=== PATIENT | female | born 1940 | race Caucasian/White ===

== ENCOUNTER 2016-10-13 11:57 | Inpatient (IN) | payer MEDICARE, OTHER ==
[~2016-10-13] VITALS: Ht 162.6 cm; Wt 59.1 kg
[~2016-10-13 11:57] MED LIST: ARICEPT10 MG PO; BAYER CHEWABLE81 MG PO; CRESTOR20 MG PO; CYCLOBENZAPRINE10 MG PO; DOXYCYCLINE HY100 M2; DOXYCYCLINE HY100 M2 PO; EVISTA60 MG PO; FEXOFENADINE H180 MG PO; INDERAL 40 MG T40 MG PO; LEVAQUIN750 MG PO; MUCINEX600 MG PO; OXYCONTIN15 MG PO; PREDNISONE20 MG PO; PRILOSEC20 MG PO; PROZAC20 MG PO; ROXICODONE15 MG PO; TESSALON PERLE100 MG PO; TOPAMAX100 MG PO; VIBRAMYCIN 100100 MG PO; VITAMIN D5000 UNIT PO
[2016-10-13 13:44] LABS: BASOPHILS 0.1 % (0.0-2.0); EOSINOPHILS 0.1 % (0-7); HEMATOCRIT 36.5 % (36.0-48.0); HEMOGLOBIN 11.7 g/dL (12-16); IMMATURE GRANULOCYTES 0.5 % (0-5); LYMPHOCYTES 6.2 % (15-50); MCH 30.2 pg (26.0-34.0); MCHC 32.1 g/dL (31.0-37.0); MCV 94.3 fL (80.0-100.0); MEAN PLATELET VOLUME 10.8 fL (7.4-10.4); MONOCYTES 15.4 % (2-11); NEUTROPHILS 77.7 % (40-80); PLATELET COUNT 317 10x3/uL (130-400); RBC 3.87 10x6/uL (4.00-5.40); RDW 13.6 % (11.5-14.5); WBC 26.2 10x3/uL (4.8-10.8)
[2016-10-13 13:59] LABS: ALBUMIN 2.8 g/dL (3.4-5.0); BILIRUBIN - TOTAL 0.27 mg/dL (0.2-1.3); CALCIUM 8.7 mg/dL (8.5-10.1); CARBON DIOXIDE 25.2 mmol/L (21.0-32.0); CREATININE - SERUM 0.9 mg/dL (0.6-1.3); POTASSIUM - SERUM 4.2 mmol/L (3.5-5.1); PROTEIN - SERUM 6.5 g/dL (6.4-8.2)
[2016-10-13 14:33] LABS: CKMB 26.8 U/L (0.0-3.6)
[2016-10-13 14:42] LABS: CREATINE KINASE 963 UL (21-215); TROPONIN-I < 0.017 ng/mL (0.000-0.060)
[2016-10-13 14:54] LABS: APPEARANCE CLEAR (CLEAR); BILIRUBIN NEGATIVE (NEGATIVE); COLOR YELLOW (YELLOW); GLUCOSE NEGATIVE (NEGATIVE); KETONE NEGATIVE (NEGATIVE); LEUKOCYTE ESTERASE TRACE (NEGATIVE); NITRITE NEGATIVE (NEGATIVE); PROTEIN 1+ mg/dL (NEGATIVE); UROBILINOGEN NORMAL (NORMAL)
[2016-10-13 14:55] LABS: RED CELLS - URINE 0-5 /hpf (0-5)
[2016-10-13 14:56] LABS: BACTERIA MODERATE /hpf (NONE SEEN); EPITHELIAL CELLS 0-5 /hpf (0-5)
[2016-10-13 20:00] VITALS: BP 147/75
--- NOTE | 2016-10-13 20:20 | NUR ---
PATIENT RESTING IN BED COMPLAINTS OF HEADACHE 06/29. OXYCODONE GIVEN ORDERED. NO OTHER NEEDS VOICED AT THIS TIME. BED LOW. CALL LIGHT IN REACH.
[2016-10-14] VITALS (7 sets, daily range): BP systolic 116–147; BP diastolic 44–75; Ht 162.6 cm; Wt 59.1 kg
[2016-10-14 07:08] LABS: CALC OSMOLALITY 272 mosm/kg (275-300); CALCIUM 7.9 mg/dL (8.5-10.1); CARBON DIOXIDE 24.6 mmol/L (21.0-32.0); CHLORIDE - SERUM 102 mmol/L (98-107); CREATININE - SERUM 0.7 mg/dL (0.6-1.3); GLUCOSE 97 mg/dL (74-106); POTASSIUM - SERUM 4.1 mmol/L (3.5-5.1); SODIUM 135 mmol/L (136-145); UREA NITROGEN 22 mg/dL (7-18); eGFR NON AFRICAN AMERICAN 86 mL/min (90-120)
[2016-10-14 07:14] LABS: HEMATOCRIT 32.3 % (36.0-48.0); HEMOGLOBIN 10.3 g/dL (12-16); MCH 29.7 pg (26.0-34.0); MCHC 31.9 g/dL (31.0-37.0); MCV 93.1 fL (80.0-100.0); MEAN PLATELET VOLUME 10.6 fL (7.4-10.4); PLATELET COUNT 312 10x3/uL (130-400); RBC 3.47 10x6/uL (4.00-5.40); RDW 13.5 % (11.5-14.5); WBC 23.7 10x3/uL (4.8-10.8)
--- NOTE | 2016-10-14 07:15 | NUR ---
REPORT RECEIVED FROM SUPERVISOR GRADING NURSE. CALL LIGHT IN REACH.
[2016-10-14 07:43] LABS: LYMPHOCYTES 8 % (15-50); MONOCYTES 12 % (2-11); NEUTROPHILS 75 % (40-80); PLATELET ESTIMATE NORMAL
--- NOTE | 2016-10-14 08:11 | HP ---
PATIENT: HECTOR RAMIREZ MEDICAL RECORD: [id number] ACCOUNT: [id number] LOCATION:D.MS [id number] : 38 ADMISSION DATE: 10/13/16 HISTORY AND PHYSICAL EXAMINATION DATE OF ADMISSION: 10/13/2016 CHIEF COMPLAINT: Fever, confusion, shortness of breath. HISTORY OF PRESENT ILLNESS: This is a 76-year-old female who has a primary care doctor either in [place] or [place]. She has lived in [place] for years. She presented to the ER today complaining of fever, confusion, and shortness of breath for about 2 weeks. Her white count was high at 26,000. She has a history of COPD. She had UTI in the ER. She was admitted for elevated white count, COPD exacerbation, and UTI. PAST MEDICAL AND SURGICAL HISTORY: Significant for COPD, reflux, recurrent UTIs, hyperlipidemia, and insomnia. PAST SURGICAL HISTORY: Hysterectomy, appendectomy, left knee arthroscopy in 2008 and again in 2013. The last was done by Dr. Raj Bonds at [facility]. ALLERGIES: Reportedly to CEPHALEXIN, BACTRIM, IMITREX, KEFLEX, and LEVAQUIN. HOME MEDICATIONS: Aspirin 81 mg a day, Prozac 40 mg a day, Evista 60 mg a day, vitamin D 5000 units once a day, Crestor 20 mg a day, Inderal-LA 40 once a day for migraine headaches, Topamax 100 mg twice a day, oxycodone IR 15 mg p.r.n. migraine headaches, Prilosec 20 mg a day. It is also reported she takes Flexeril 20 mg at bedtime, Tessalon Perlrichard. It also appears that she may have had a steroid Dosepak recently and doxycycline by mouth recently. 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 HABITS: Former smoker. Denies alcohol or drug use. FAMILY HISTORY: Father had CHF. Mother had lung cancer. REVIEW OF SYSTEMS: GENERAL: No major weight changes. HEENT: No sinus or allergy problems. RESPIRATORY: Has COPD. CARDIAC: No history of coronary artery disease. GASTROINTESTINAL: Has a little reflux. GENITOURINARY: Has had recurrent UTIs and saw Dr. Cruz in the past. MUSCULOSKELETAL: No significant arthritis. She did have left knee arthroscopy a couple of times. NEUROLOGIC: Has history of migraine headaches. PSYCHIATRIC: Has some depression. PHYSICAL EXAMINATION: VITAL SIGNS: Temperature 98.1, pulse 96, respirations 19, blood pressure 147/75, O2 sat 98%. GENERAL: She does not appear to be in acute distress. She is awake and fairly HISTORY AND PHYSICAL [id number] HECTOR RAMIREZ alert now. It is reported she was confused earlier in the ER. HEENT: TMs are clear. Nose and throat are unremarkable. NECK: Supple. No JVD or bruit. HEART: Regular rate and rhythm. LUNGS: Fairly clear, maybe a few wheezes. ABDOMEN: Soft, flat, nontender. BACK: No CVA tenderness. No flank tenderness. EXTREMITIES: No edema. LABORATORY DATA: Urinalysis is reportedly yellow and clear, 1+ protein, trace blood, 0-5 red blood cells, 10-25 white blood cells, 0-5 epithelial cells, moderate bacteria. CBC with a white count of 26,200, hemoglobin 11.7, hematocrit 36.5, platelet count 317,000, 77% neutrophils, 6% lymphocytes. Basic metabolic panel is normal except BUN is a little elevated at 23. Lactic acid 1.0, calcium 8.7. LFTs: AST is 66, alkaline phosphatase is 148. Other LFTs are fine. Her creatinine kinase is high at 963 for some reason, CK-MB is 26.8, troponin is less than 0.017. Albumin is low at 2.8. DIAGNOSTIC STUDIES: Chest x-ray was done showing [id number] central pulmonary vascular congestion, no acute infiltrates seen. Flu tests are negative for A and B. ASSESSMENT: 1. Urinary tract infection. 2. Chronic obstructive pulmonary disease. 3. Elevated white count but this could be partially due to recent steroid use. 4. History of migraines. PLAN: We will admit. She is started on doxycycline as she has multiple allergies. I will see if we can run a urine culture on her urinalysis. Continue her usual medications. Of note, I did look her up on [place] prescription management program and she is getting 70 oxycodone IR 15 mg every month from Dr. Jesse Biggs, that is either is [place] or [place]. I am concerned about her chronic pain medicine use. Other tests and procedures as warranted. TRANSINT:[id number] Voice Confirmation ID: [id number] DOCUMENT ID: [id number] TORY VASQUEZ MD at 0811 CC: [id number] DICTATION DATE: 10/13/162220 LOCATION AND MEASUREMENT TECHNICIAN: 10/13/16 2308 ADM IN [place] [id number] [place] [id number]
--- NOTE | 2016-10-14 08:26 | NUR ---
ASSESSMENT COMPLETED. AM MEDS ADMINISTERED WITH OXY IR. CALL LIGHT IN REACH. WILL CONTINUE WITH PLAN OF CARE.
--- NOTE | 2016-10-14 09:26 | NUR ---
Patient resting quietly in bed wwithout c/o voiced. States breathing better. Some audible wheezees. IV infusing without signs of infiltration. O2 inplace at 1 l/m per cannula. Lindsey Carrington RN
--- NOTE | 2016-10-14 11:05 | NUR ---
RESTING WITH EYES CLOSED. RESP EVEN AND UNLABORED. CALL LIGHT IN REACH.
--- NOTE | 2016-10-14 13:48 | NUR ---
Patient Name: HECTOR RAMIREZ Admission Status: ER Accout number: [id number] Admission Date: 10-13-2016 : 1940 Admission Diagnosis: Attending: LEENA Current LOS: 1 Anticipated DC Date: 10-16-2016 Planned Disposition: Home Primary Insurance: MEDICARE A & B Discharge Planning Comments: CM MET WITH PATIENT REGARDING D/C NEEDS AND PLANS. PATIENT STATED SHE LIVES ALONE AND HAS NO STEPS OR STAIRS AT HER HOME. PATIENT STATED SHE IS INDEPENDENT WITH HER CARE AND HAS A WALKER, AND SHOWER CHAIR AT HOME. PATIENTS PCP IS DR. COLLIER IN [place], AND USES [facility] FOR HIS PHARMACY. PATIENT STATED HER SON TAYLA WILL PICK HER UP AT DISCHARGE. PATIENT STATED SHE HAS NEVER HAD HOME HEALTH AND DOES NOT WANT IT. CM WILL CONTINUE TO FOLLOW PATIENT WITH D/C NEEDS AND PLANS. PCP DR. COLLIER IN [facility]- [phone] BAUTISTA DUNBAR (SON) [phone] TAYLA (SON) SHE DID NOT HAVE HIS NUMBER Lead Janitor: Becca Rodrigez Is the patient Alert and Oriented? Yes 0 * How many steps to enter\exit or inside your home? 0 0 * PCP DR. COLLIER IN [place] 0 * Pharmacy [facility] 0 * Preadmission Environment Home Alone 0 * ADLs Independent 0 * Equipment Shower Chair Walker 0 * List name and contact numbers for known caregivers / representatives who currently or will assist patient after discharge: BAUTISTA BETTINA (OTHER) [phone] * Community resources currently utilized None 0 * Additional services required to return to the preadmission environment? Yes 0 * Can the patient safely return to the preadmission environment? Yes 0 * Has this patient been hospitalized within the prior 30 days at any hospital? No 0 Grand Total: 0
--- NOTE | 2016-10-14 13:58 | NUR ---
OXY IR PO AND LEVAQUIN IVPB. CALL LIGHT IN REACH.
--- NOTE | 2016-10-14 14:06 | NUR ---
RAFAEL HOLDEN PO PER MD ORDER. CALL LIGHT IN REACH.
--- NOTE | 2016-10-14 16:03 | NUR ---
X COMPLETED. IV SL/D
--- NOTE | 2016-10-14 18:13 | NUR ---
NO CHANGES IN INITIAL ASSESSMENT. CALL LIGHT IN REACH. WILL CONTINUE WITH PLAN OF CARE.
--- NOTE | 2016-10-14 20:15 | NUR ---
PATIENT SITTING UP ON THE SIDE OF THE BED. NO SIGNS OF DISTRESS NOTED. SCHEDULED MEDICATIONS GIVEN. DENIES ANY NEEDS AT THIS TIME. BED LOW CALL LIGHT IN REACH
[2016-10-15] VITALS: BP 106/44
[2016-10-15 04:00] VITALS: BP 102/51
--- NOTE | 2016-10-15 04:23 | NUR ---
PT REMAINS IN ISOLATION WITH NO DISTRESS NOTED. SHE IS QUIETLY WATING TV . THE BED IS LOW, RAILS UP X'S 2 WITH THE CALL LIGHT AT HAND.
[2016-10-15 05:59] LABS: BASOPHILS 0.1 % (0.0-2.0); HEMATOCRIT 34.1 % (36.0-48.0); HEMOGLOBIN 10.9 g/dL (12-16); IMMATURE GRANULOCYTES 0.4 % (0-5); LYMPHOCYTES 9.2 % (15-50); MCH 29.5 pg (26.0-34.0); MCV 92.4 fL (80.0-100.0); MEAN PLATELET VOLUME 11.5 fL (7.4-10.4); NEUTROPHILS 76.3 % (40-80); PLATELET COUNT 353 10x3/uL (130-400); RBC 3.69 10x6/uL (4.00-5.40); RDW 13.6 % (11.5-14.5); WBC 22.8 10x3/uL (4.8-10.8)
[2016-10-15 06:19] LABS: ANION GAP 15.8 mmol/L (8-16); CALCIUM 8.6 mg/dL (8.5-10.1); CARBON DIOXIDE 23.3 mmol/L (21.0-32.0); CREATININE - SERUM 0.8 mg/dL (0.6-1.3); POTASSIUM - SERUM 4.1 mmol/L (3.5-5.1)
[2016-10-15 08:20] VITALS: BP 111/52
--- NOTE | 2016-10-15 08:30 | NUR ---
AWAKE AND ALERT. ORIENTED X3. NO C/O AT THIS TIME. SITTING UP IN BED EATING BREAKFAST. LUNGS ARE CLEAR BILATERALLY, NO COUGH NOTED. PATIENT REPORTS OCCASSIONAL PRODUCTIVE COUGH. SKIN IS INTACT WITHOUT REDNESS. DENIES NEEDS. SL TO LEFT WRIST PATENT WITHOUT REDNESS AT INSERTION SITE.
--- NOTE | 2016-10-15 09:45 | NUR ---
OFF UNIT VIA FOR EXRAY.
--- NOTE | 2016-10-15 10:15 | NUR ---
RETURNED FROM PROCEDURE.
[2016-10-15 11:51] VITALS: BP 113/56
--- NOTE | 2016-10-15 16:00 | NUR ---
UP TO BR PER SELF. VOIDED CLEAR YELLOW URINE WITHOUT DIFFICULTY. DENIES NEEDS.
[2016-10-15 16:26] VITALS: BP 112/62
--- NOTE | 2016-10-15 18:10 | NUR ---
ATE ALMOST ALL OF SUPPER. NO CHANGES NOTED. DENIES NEEDS.
[2016-10-15 20:00] VITALS: BP 103/46
--- NOTE | 2016-10-15 20:56 | NUR ---
PT C/O HEADACHE PAIN 04/29. GAVE OXY IR PO. NO OTHER NEEDS. ASSESSMENT COMPLETE PER FLOWSHEET. WILL CONTINUE TO MONITOR.
[2016-10-16 02:00] VITALS: BP 92/50; BP 99/55
[2016-10-16 04:00] VITALS: BP 99/55
[2016-10-16 06:25] LABS: BASOPHILS 0.1 % (0.0-2.0); EOSINOPHILS 0.5 % (0-7); HEMATOCRIT 31.6 % (36.0-48.0); HEMOGLOBIN 10.2 g/dL (12-16); IMMATURE GRANULOCYTES 0.6 % (0-5); LYMPHOCYTES 10.6 % (15-50); MCH 29.2 pg (26.0-34.0); MCHC 32.3 g/dL (31.0-37.0); MCV 90.5 fL (80.0-100.0); MEAN PLATELET VOLUME 11.3 fL (7.4-10.4); MONOCYTES 12.4 % (2-11); NEUTROPHILS 75.8 % (40-80); PLATELET COUNT 373 10x3/uL (130-400); RBC 3.49 10x6/uL (4.00-5.40); RDW 13.7 % (11.5-14.5); WBC 18.7 10x3/uL (4.8-10.8)
[2016-10-16 06:39] LABS: CALCIUM 8.6 mg/dL (8.5-10.1); CARBON DIOXIDE 23.3 mmol/L (21.0-32.0); CREATININE - SERUM 0.9 mg/dL (0.6-1.3)
[2016-10-16 06:45] LABS: POTASSIUM - SERUM 3.3 mmol/L (3.5-5.1)
[2016-10-16 07:50] VITALS: BP 116/57
--- NOTE | 2016-10-16 08:07 | NUR ---
AWAKE AND ALERT. ORIENTED X3. NO C/O AT THIS TIME. LUNGS ARE CLEAR BUT SLIGHTLY DIMINISHED, REPORTS NON PRODUCTIVE COUGH. SKIN IS INTACT WITHOUT REDNESS. SL TO LEFT WRIST IS PATENT WITHOUT REDNESS AT INSERTION SITE. ANXIOUS TO GO HOME AT THIS TIME. REMINDED WE NEED URINE SPECIMEN. DENIES NEEDS.
[2016-10-16] MEDS ORDERED: LEVAQUIN750 MG PO (08:37)
--- NOTE | 2016-10-16 11:00 | NUR ---
FLU SWAB SENT TO LAB. DISCHARGED TO HOME AMBULATORY WITH FAMILY. DISCHARGE INSTRUCTIONS GIVEN BOTH VERBALLY AND WRITTEN. ALL QUESTIONS ANSWERED. PATIENT AND FAMILY VERBALIZED UNDERSTANDING OF SAME. NEEDED PRESCRIPTIONS ESCRIBED TO PHARMACY OF CHOICE. SL TO LEFT WRIST D/C WITH CATHETER INTACT.
--- NOTE | 2016-10-16 11:20 | NUR ---
Patient Name: HECTOR RAMIREZ Encounter No: [id number] : 1940 Primary Insurance: MEDICARE A & B Anticipated DC Date: 10-16-2016 Planned Disposition: Home External Planned Provider: : DCP follow-up note: Patient and family in agreement with discharge plan. No changes to plan. Case management will follow and assist as needed. Laura Bella
--- NOTE | 2016-10-30 12:39 | CN ---
PATIENT NAME:HECTOR RAMIREZ MEDICAL RECORD: [id number] : [birth year] LOCATION:D.MS [id number] ADMIT DATE: 10/13/16 ACCOUNT: [id number] CONSULTING PHYSICIAN: ELADIO CHUA MD REFERRING PHYSICIAN: TORY VASQUEZ MD DATE OF CONSULTATION: 10/14/2016 Pulmonary Consultation CONSULT REQUESTING PHYSICIAN: Dr. Tory Vasquez. REASON FOR CONSULTATION: Acute shortness of breath, coughing, and leukocytosis. Now, the patient is confused. HISTORY OF PRESENT ILLNESS: She was admitted through the ER for shortness of breath and coughing. She was also hearing herself wheezing. Also, it was noted that the patient has UTI. She claims that she has hematuria, but according to the nurses, no blood was seen in her urine. There is no associated nausea or vomiting. No diarrhea. REVIEW OF SYSTEMS: CONSTITUTIONAL: The patient is a bit confused. Otherwise, she is awake and alert. RESPIRATORY: As in history of present illness. CARDIOVASCULAR: No chest pain. No swelling of the lower extremities. GASTROINTESTINAL: No nausea or vomiting. No diarrhea. GENITOURINARY: The patient claims that she has hematuria. Other review of the systems is negative. PAST MEDICAL HISTORY: 1. History of pulmonary nodule and that has been followed for years in [place] and that was stable and benign. 2. Hypertension. 3. Anxiety and depression. 4. History of migraine headache. 5. Hyperlipidemia. PAST SURGICAL HISTORY: 1. Appendectomy. 2. Hysterectomy. 3. Carotid endarterectomy. ALLERGIES: SHE IS ALLERGIC TO CEPHALEXIN, PENICILLIN, AND SULFA. PRESENT MEDICATIONS: She is on doxycycline IV, albuterol/ipratropium nebulizer. Other medications are reviewed. PERSONAL AND SOCIAL HISTORY: The patient has a remote history of smoking. She is a nondrinker. FAMILY HISTORY: Noncontributory. PHYSICAL EXAMINATION: GENERAL: Now, the patient is lying comfortably. She is not in acute distress. VITAL SIGNS: The blood pressure is 116/59, pulse is 71, respiration is 17, CONSULT REPORT [id number] HECTOR RAMIREZ temperature 98.2, and SpO2 of 96% on room air. HEENT: Conjunctivae are pink, sclerae nonicteric. NECK: Supple. No JVD. CHEST: Excursion is minimal on both sides. There are bibasilar crackles. No wheezing. HEART: Rhythm regular, normal sound, no murmur. ABDOMEN: Soft, bowel sounds present. No hepatosplenomegaly. RECTAL: Deferred. EXTREMITIES: No cyanosis, no clubbing, no pedal edema. SKIN: Warm, normal turgor. CENTRAL NERVOUS SYSTEM: The patient is awake and alert, but she is a bit confused. She is oriented to time and place. IMAGING: Chest radiograph, there is increased interstitial marking, no consolidation as such. LABORATORY DATA: CBC: The WBC 26.2, hemoglobin 11.7, hematocrit 36.5, and the platelet count 317. Chemistry: Sodium 135, potassium 4.1, BUN is 22, creatinine is 0.7. CK is 963, MB is 26.8. The troponin is less than 0.017. IMPRESSION: 1. Acute exacerbation of chronic obstructive pulmonary disease. 2. Tracheobronchitis. 3. Leukocytosis secondary to tracheobronchitis from acute cough. 4. Urinary tract infection. 5. History of pulmonary nodule that is stable for more than 5 years. RECOMMENDATION: 1. Continue albuterol/ipratropium nebulizer. I will add Brovana, budesonide nebulizer. 2. Mucinex DM. Change the doxycycline to Levaquin. Check the urine for culture and sensitivity. Repeat the labs and chest radiograph in the morning. Dr. Vasquez, once again thanks for involving me in the care of Ms. Ramirez. TRANSINT:[id number] Voice Confirmation ID: [id number] DOCUMENT ID: [id number] ELADIO CHUA MD at 1239 CC: TORY VASQUEZ MD [id number] DICTATION DATE: 10/14/16 1157 CRUSHED STONE GRADER: 10/14/16 1310 DIS IN 10/16/16 [facility] [address] [place] [address]
== END 2016-10-16 11:50 | disposition home or self-care (01) | DRG 190 ==
LOC: D.ER 11:57 → D.MS 17:10
PROVIDERS: Physician Assistant Medical; ADMIT Family Medicine
DX: J44.0 Chronic obstructive pulmonary disease with (acute) lower respiratory infection (principal); J18.9 Pneumonia, unspecified organism; G93.41 Metabolic encephalopathy; N39.0 Urinary tract infection, site not specified; J44.1 Chronic obstructive pulmonary disease with (acute) exacerbation; F03.90 Unspecified dementia, unspecified severity, without behavioral disturbance, psychotic disturbance, mood disturbance, and anxiety; G43.909 Migraine, unspecified, not intractable, without status migrainosus; G89.29 Other chronic pain

== ENCOUNTER 2018-10-07 14:02 | Observation (INO) | payer MEDICARE, OTHER ==
[~2018-10-07] VITALS: Ht 162.6 cm; Wt 56.4 kg
--- NOTE | ~2018-10-07 | HEMODYNAMI ---
PATIENT:HECTOR RAMIREZ MEDICAL RECORD: [id number] : 38 [address] [place] CLINICT# [id number] ADMISSION DATE: 10/07/18 Generatedon:10/08/201812:37 Patient name: HECTOR RAMIREZ Patient #: [id number] SSN: : 1940 Date of study: 10/08/2018 Page: Of Hemodynamic Procedure Report Patient Data Patient Demographics Procedure consent was obtained First Name: HECTOR Gender: Female Last Name: ASHLEY : 1940 Patient #: [id number] Age: 78 year(s) Race: Unknown Additional ID: [id number] Contact details [address]: [address] [place] [address] State: [place] City: [place] Zip code: [address] Admission Admission Data Admission Date: 10/07/2018 Admission Time: 16:59 Room #: D.2124 Height (in.): 64 BSA: 1.59 (m2) Height (cm.): 162.56 BMI: 21.19 (kg/m2) Weight (lbs.): 123.46 Weight (kg.): 56 Lab Results Lab Result Date: 10/08/2018 Lab Result Time: 0:00 Biochemistry Name Units Result Min Max BUN mg/dl 27 --(----)-* 7 18 Creatinine mg/dl 1 --(--*-)-- 0.6 1.3 CBC Name Units Result Min Max Hemoglobin g/dl 12.1 *-(----)-- 13.5 17.5 Procedure Procedure Types Cath Procedure Diagnostic Procedure LHC LHC w/Coronaries w/Grafts Procedure Description Procedure Date Procedure Date: 10/08/2018 Procedure Start Time: 12:25 Procedure End Time: 12:32 Procedure Staff Name Function Riley Nicholas MD Performing Physician Kirk Kelly RT Monitor Danna Knight RT Scrub Rey Swan RN Nurse Procedure Data Cath Procedure Fluoroscopy Diagnostic fluoroscopy Total fluoroscopy Time: 0.7 time: 0.7 min min Diagnostic fluoroscopy Total fluoroscopy dose: 120 dose: 120 mGy mGy Contrast Material Contrast Material Type Amount (ml) Isovue 300 32 Entry Location Entry Primary Successful Side Size Upsize Upsize Entry Closure Knowles ccessful Closure Location (Fr) 1 (Fr) 2 (Fr) Remarks Device Remarks Radial Right 6 Fr Mechanical artery Short Compression Estimated blood loss: 10 ml Diagnostic catheters Device Type Used For End Catheter Placement DIAGNOSTIC [place] 110cm 5 Procedure Fr catheter ([id number]) Procedure Complications No complications Procedure Medications Medication Administration Route Dosage Oxygen etCO2 Nasal cannula 2 l/min Lidocaine 2% added to field 20 Heparin Flush Bag added to field 2 bags (1000units/500ml NS) 0.9% NaCl I.V. 100 ml/hr Radial Cocktail I.A. 1 syringe (Verapomil 2mg/Nitro 400mcg/Heparin 1500units) Versed I.V. 1 mg Fentanyl I.V. 50 mcg Versed I.V. 1 mg Fentanyl I.V. 50 mcg Hemodynamics Rest BSA: 1.59 (m2) HGB: 12.1 (g/dl) O2 Consumption: Estimated: 154.56 (ml/min) O2 Co nsumption indexed: Estimated:97.21 (ml/min/m) Heart Rate: 89 (bpm) Snapshots Pre Cath Intra NCS Post Cath Vital Signs Time Heart Resp SPO2 etCO2 NIBP (mmHg) Rhythm Pain Sedation Rate (ipm) (%) (mmHg) Status Level (bpm) 12:22:24 89 11 91 33.5 138/76(107) NSR 0 (11) 10(A) , No pain 12:26:44 86 13 95 15.6 116/63(87) NSR 0 (11) 10(A) , No pain 12:31:47 88 13 93 20.8 95/55(65) NSR 0 (11) 9(A) , No pain 12:34:25 86 14 94 10.4 106/55(88) NSR 0 (11) 10(A) , No pain Medications Time Medication Route Dose Verified Delivered Reason Notes Effectiveness by by 12:22:17 Oxygen etCO2 2 l/min Riley Le used for Nasal Yu Swan RN procedure cannula 12:23:05 Versed I.V. 1 mg Riley Le for sedation Yu Swan RN 12:23:13 Fentanyl I.V. 50 mcg Riley Le for sedation Yu Swan RN 12:23:33 Lidocaine 2% added 20ml Riley Lin for local to vial Yu Nicholas MD anesthetic field 12:23:41 Heparin Flush added 2 bags Riley Lin used for Bag to Yu Nicholas MD procedure (1000units/500ml field NS) 12:23:50 0.9% NaCl I.V. 100 Riley Le Per ml/hr Yu Swan RN physician 12:27:33 Radial Cocktail I.A. 1 Riley Lin for (Verapomil syringe Yu Nicholas MD vasodilation 2mg/Nitro 400mcg/Heparin 1500units) 12:27:54 Versed I.V. 1 mg Riley Le for sedation Yu Swan RN 12:28:58 Fentanyl I.V. 50 mcg Riley Le for sedation Yu Swan RN Procedure Log Time Note 11:59:25 Kirk Kelly RT(R) sent for patient. Start room use. 11:59:27 Diagnostic Cath status Elective 11:59:28 Signed procedure consent form obtained from patient. 11:59:32 Time tracking: Call back (After hours or weekends) 11:59:36 Plan of Care:Hemodynamics will remain stable., Cardiac rhythm will remain stable., Comfort level will be maintained., Respiratory function will remain adequate., Patient/ family verbilizes understanding of procedure., Procedure tolerated without complication., Recovers from procedure without complications.. 12:00:10 Lab Result : BUN 27 mg/dl 12:00:10 Lab Result : Creatinine 1 mg/dl 12:00:10 Lab Result : Hemoglobin 12.1 g/dl 12:02:19 Procedure type changed to Cath procedure, Diagnostic procedure, LHC, LHC w/Coronaries w/Grafts 12:02:25 Patient Height : 64 inches 12:02:43 Patient Weight : 123.46 lbs 12:09:03 Patient received from Med II to CCL 1 Alert and oriented. Tansferred to table in Supine position. 12:09:04 Warm blankets applied, and mariano hugger turned on for patient comfort. 12:09:05 Correct patient and procedure confirmed by team. 12:09:05 ECG and BP/O2 sat monitors applied to patient. 12:21:16 Vital chart was started 12:21:18 Baseline sample Acquired. 12:21:22 Rhythm: sinus rhythm 12:21:23 Full Disclosure recording started 12:21:27 H&P Date Dictated: 10/08/2018 Within 30 days and on chart.. 12:21:28 Pre-procedure instructions explained to patient. 12:21:28 Pre-op teaching completed and patient verbalized understanding. 12:21:31 Family unavailable. 12:21:32 Patient NPO since Midnight. 12:21:35 Is the patient allergic to Iodine/contrast media? No. 12:21:37 Is patient on blood thinner?Yes 12:21:39 ACC The patient was administered the following blood thiners within the last 24 hours: ACCPlavix 12:21:41 Patient diabetic? No. 12:21:43 Previous problem with sedation/anesthesia? No ? 12:21:45 Snore? No 12:21:46 Sleep apnea? No 12:21:47 Deviated septum? No 12:21:47 Opens mouth fully? Yes 12:21:48 Sticks out tongue? Yes 12:21:52 Airway obstruction? Yes COPD 12:21:57 Dentures? Yes OUT 12:22:00 Pre procedure: right dorsailis pedis pulse 1+ Palpable, but thready & weak; easily obliterated 12:22:02 Modified Lev's test Ulnar < 7 seconds 12:22:04 Patient pain scale 0/10 ?. 12:22:09 IV patent on arrival in left forearm with 0.9% NaCl at [facility]. 12:22:10 Lab results completed and on chart. 12:22:13 Right Radial & Right Groin area was prepped with chlora-prep and draped in sterile fashion 12:22:15 Alarms reviewed by R. N. 12:22:15 Sharps counted by scrub and verified by R.N. 12:22:17 Oxygen 2 l/min etCO2 Nasal cannula was administered by Rey Swan RN; used for procedure; 12::17 --------ALL STOP TIME OUT------ 12:22:17 Final Timeout: patient, procedure, and site verified with staff and physician. All members of the team are in agreement. 12:22:19 Right Radial & Right Groin site verified by team. 12:22:22 Physical assessment completed. ASA score P 2 - A patient with mild systemic disease as per Riley Nicholas MD. 12::25 Sedation plan: IV Moderate Sedation Medication:Versed, Fentanyl 12:22:48 Use device set Radial Dx or PCI 12:23:02 Tegaderm 4 x 4 (1626W) opened to sterile field. 12:23:03 ACIST Manifold (16605) opened to sterile field. 12:23:04 ACIST Hand Control (35708) opened to sterile field. 12:23:05 Versed 1 mg I.V. was administered by Rey Swan RN; for sedation; 12:23:05 ACIST Syringe (29167) opened to sterile field. 12:23:06 Medline Cath Pack ([id number]) opened to sterile field. 12:23:06 Bag Decanter (2002S) opened to sterile field. 12:23:07 DIAGNOSTIC WIRE .035 260cm J wire (875356) opened to sterile field. 12:23:07 MBrace Wrist Support ([id number]) opened to sterile field. 12:23:09 SHEATH 6FR Slender (65-6044) opened to sterile field. 12:23:10 IV Extension Set opened to sterile field. 12:23:13 Fentanyl 50 mcg I.V. was administered by Rey Swan RN; for sedation; 12::33 Lidocaine 2% 20ml vial added to field was administered by Riley Nicholas MD; for local anesthetic; 12::41 Heparin Flush Bag (1000units/500ml NS) 2 bags added to field was administered by Riley Nicholas MD; used for procedure; 12::50 0.9% NaCl 100 ml/hr I.V. was administered by Rey Swan RN; Per physician; 12:25:38 Procedure started. 12:25:43 Local anesthetic to right radial artery with Lidocaine 2% by Riley Nicholas MD.INITIAL ACCESS ONLY 12:27:19 A 6 Fr Short sheath was inserted into the Right Radial artery 12::25 A DIAGNOSTIC [place] 110cm 5 Fr catheter ([id number]) was advanced over the wire and used for Procedure. 12:27:33 Radial Cocktail (Verapomil 2mg/Nitro 400mcg/Heparin 1500units) 1 syringe I.A. was administered by Riley Nicholas MD; for vasodilation; 12::54 Versed 1 mg I.V. was administered by Rey Swan RN; for sedation; 12::14 LV angiography performed. 12::16 LV gram done using DE LOS SANTOS 12::21 EF : 65 % 12::24 Injector settings: Ml/sec: 7, Volume: 15, 12::33 LCA angiography performed. 12::58 Fentanyl 50 mcg I.V. was administered by Rey Swan RN; for sedation; 12::32 RCA angiography performed. 12::54 Catheter removed. 12:30:02 TR BAND Standard ([id number]) opened to sterile field. 12::23 Sheath removed intact; hemostasis achieved with Mechanical Compression to the Right Radial artery. 12:30:25 Procedure ended.(Physican Out) 12::31 Fluoroscopy time 00.70 minutes. 12::34 Fluoroscopy dose: 120 mGy 12::34 Flurop Dose total: 120 12::39 Contrast amount:Isovue 300 32ml. 12:31:41 Sharps counted by scrub and verified by R.N. 12::43 TR band inflated with 10cc of air. 12:31:45 Insertion/operative site no bleeding no hematoma. 12:31:46 Post Procedure Pulses reassessed and unchanged 12::55 Post-procedure physical assessment completed. ASA score P 2 - A patient with mild systemic disease as per Riley Nicholas MD. 12:31:57 Post procedure rhythm: unchanged. 12:32:00 Estimated blood loss: 10 ml 12:32:20 Post procedure instruction explained to patient.Patient verbalizes understanding. 12:32:21 Patient needs reinforcement of post procedure teaching. 12:32:31 Procedure and supply charges have been captured, reviewed, submitted and are correct. 12:32:36 Procedure Complication : No complications 12:32:42 Vital chart was stopped 12:32:43 See physician's report for complete and final results. 12:32:49 Report given to PCU. 12:32:53 Patient transfered to PCU with Bed. 12:32:56 Procedure ended. 12:32:56 Full Disclosure recording stopped 12:36:36 End room use (Document Last) Device Usage Item Name Manufacture Quantity Catalog Hospital Part Current Minimal Lot# / Number Charge Number Stock Stock Serial# Code Tegaderm 4 3M 1 1626W [id number] 600442 716638 5 x 4 (1626W) ACIST Acist 1 79180 373523 041623 776440 5 Manifold Medical (23150) Systems Inc ACIST Hand Acist 1 56520 989211 899008 726995 5 Control Medical (61967) Systems Inc ACIST Acist 1 15724 575769 294749 648608 20 Syringe Medical (08591) Systems Inc Medline Medline 1 [id number] 848067 79904 722086 5 Cath Pack ([id number]) Bag Microtek 1 2001S 080399 43251 629229 5 Decanter Medical Inc. (2001S) DIAGNOSTIC [place] 1 892259 764115 316259 179016 30 WIRE .035 260cm J wire (317362) MBrace Advanced 1 140-0250-00 547293 88229 613582 5 Wrist Vascular Support Dynamics ([id number]) SHEATH 6FR Terumo 1 [id number] 874737 124147 122280 5 Slender (80-1060) IV Hospira 1 57430-13 521899 43262 188121 5 Extension Set DIAGNOSTIC Terumo 1 40-8704 339654 366445 555643 5 [place] 110cm 5 Fr catheter (305894) TR BAND Terumo 1 EUM43-MUI 000456 139842 984721 40 Standard ([id number]) Signature Audit [place] Stage Time Signature Unsigned Intra-Procedure 10/08/2018 Kirk Kelly 12:37:12 PM RT(R) Signatures Monitor : Kirk Kelly RT Signature : Date : Time : [facility] [address] [place] [address]
[2018-10-07 15:00] VITALS: BP 149/75
[2018-10-07 15:04] LABS: BASOPHILS 0.3 % (0-2); EOSINOPHILS 1.3 % (0-7); HEMATOCRIT 43.4 % (36.0-48.0); HEMOGLOBIN 14.4 g/dL (12-16); IMMATURE GRANULOCYTES 0.3 % (0-5); LYMPHOCYTES 24.6 % (15-50); MCH 30.1 pg (26.0-34.0); MCHC 33.2 g/dL (31.0-37.0); MCV 90.6 fL (80.0-100.0); MEAN PLATELET VOLUME 10.6 fL (7.4-10.4); MONOCYTES 13.8 % (2-11); NEUTROPHILS 59.7 % (40-80); PLATELET COUNT 365 10x3/uL (130-400); RBC 4.79 10x6/uL (4.00-5.40); RDW 13.7 % (11.5-14.5); WBC 11.8 10x3/uL (4.8-10.8)
[2018-10-07 15:21] LABS: ALBUMIN 3.5 g/dL (3.4-5.0); ALKALINE PHOSPHATASE 138 U/L (46-116); ALT (SGPT) 30 U/L (10-68); BILIRUBIN - TOTAL 0.33 mg/dL (0.2-1.3); CALC OSMOLALITY 280 mosm/kg (275-300); CALCIUM 9.3 mg/dL (8.5-10.1); CARBON DIOXIDE 29.6 mmol/L (21.0-32.0); CHLORIDE - SERUM 103 mmol/L (98-107); CREATININE - SERUM 0.9 mg/dL (0.6-1.3); GLUCOSE 108 mg/dL (74-106); POTASSIUM - SERUM 4.3 mmol/L (3.5-5.1); PROTEIN - SERUM 7.6 g/dL (6.4-8.2); SODIUM 138 mmol/L (136-145); UREA NITROGEN 25 mg/dL (7-18); eGFR NON AFRICAN AMERICAN 64 mL/min (90-120)
[2018-10-07 15:32] LABS: CKMB 2.1 U/L (0.0-3.6); CREATINE KINASE 97 UL (21-215); PRO BNP 170 pg/mL (0-450); TROPONIN-I 0.046 ng/mL (0.000-0.060)
--- NOTE | 2018-10-07 15:41 | NUR ---
BLANKET PROVIDED FOR COMFORT AND LIGHTS DIMMED. PT C/O ROSALES THAT BEGAN THIS AM, EDP NOTIFIED OF PT'S REQUEST FOR PAIN MEDICATION.
[2018-10-07 16:00] VITALS: BP 164/81
[2018-10-07 17:00] VITALS: BP 140/83
--- NOTE | 2018-10-07 17:00 | NUR ---
PT SITTING IN SEMI-MONTILLA'S, NO SIGNS OF DISRESS. COFFEE PROVIDED UPON REQUEST. BLANKET PROVIDED AND LIGHTS DIMMED FOR COMFORT.
[2018-10-07 18:00] VITALS: BP 144/75
--- NOTE | 2018-10-07 18:01 | NUR ---
NURSE ATTEMPTED TO CALL REPORT, RECEIVING NURSE UNAVAILABLE AT THIS TIME. WILL ATTEMPT TO CALL REPORT AGAIN SHORTLY.
--- NOTE | 2018-10-07 18:28 | NUR ---
DIETARY TO DELIVER MEAL TRAY TO PT'S ROOM 2204.
--- NOTE | 2018-10-07 18:56 | NUR ---
recieved from er. alert and oriented. v/s stable telemerty shows sr. IV TO LEFT HAND. DENIES ANY NEEDS AT PRESENT TIME. SR UP WITH CALL LIGHT IN REACH
[2018-10-07 19:00] VITALS: BP 128/56
--- NOTE | 2018-10-07 19:30 | NUR ---
RESUMING PATIENT CARE. PATIENT IS ALERT AND ORIENTED, RESTING COMFORTABLY IN BED. RESPIRATIONS ARE EVEN AND UNLABORED. NO S/S OF DISTRESS. PATIENT REQUESTED MORPHINE AND ZOFRAN WHICH WERE GIVEN. ALL OTHER NEEDS MET AT THIS TIME. ADMISSION ASSESSMENT AND HX COMPLETE. CALL LIGHT WITHIN REACH. WILL CPOC.
[2018-10-07 20:36] VITALS: BP 155/81; BMI 20.6
[2018-10-08] VITALS: BP 119/56
[2018-10-08 04:00] VITALS: BP 102/50
[2018-10-08 05:24] LABS: BASOPHILS 0.2 % (0-2); EOSINOPHILS 2.5 % (0-7); HEMATOCRIT 37.6 % (36.0-48.0); HEMOGLOBIN 12.1 g/dL (12-16); IMMATURE GRANULOCYTES 0.2 % (0-5); LYMPHOCYTES 36.6 % (15-50); MCH 29.3 pg (26.0-34.0); MCHC 32.2 g/dL (31.0-37.0); MEAN PLATELET VOLUME 10.6 fL (7.4-10.4); MONOCYTES 17.6 % (2-11); NEUTROPHILS 42.9 % (40-80); PLATELET COUNT 320 10x3/uL (130-400); RBC 4.13 10x6/uL (4.00-5.40); WBC 10.9 10x3/uL (4.8-10.8)
[2018-10-08 06:09] LABS: CALC OSMOLALITY 287 mosm/kg (275-300); CALCIUM 8.6 mg/dL (8.5-10.1); CHLORIDE - SERUM 105 mmol/L (98-107); CKMB 1.7 U/L (0.0-3.6); CREATINE KINASE 70 UL (21-215); GLUCOSE 95 mg/dL (74-106); POTASSIUM - SERUM 4.2 mmol/L (3.5-5.1); SODIUM 142 mmol/L (136-145); UREA NITROGEN 27 mg/dL (7-18); eGFR NON AFRICAN AMERICAN 57 mL/min (90-120)
[2018-10-08 06:16] LABS: TROPONIN-I 0.075 ng/mL (0.000-0.060)
--- NOTE | 2018-10-08 06:20 | NUR ---
CARDIOLOGY ALREADY AWARE OF ELEVATED TROP. PATIENT ADMITTED FOR POSSIBLE HEART CATH.
--- NOTE | 2018-10-08 06:36 | NUR ---
SPOKE WITH DR GAO. REPORTED INCREASED TROPONIN. KEEP PATIENT NPO FOR HEART CATH TODAY.
--- NOTE | 2018-10-08 07:00 | NUR ---
RECEIVED REPORT. ASSUMED CARE OF PATIENT. CALL LIGHT WITHIN REACH. PATIENT COMPLAINING THAT SHE STILL HAS A HEADACHE THIS AM. DENIES CHEST PAIN. NITRO PATCH TO CHEST ORDERED. DENIES NEEDS AT THIS TIME. NO DISTRESS.
--- NOTE | 2018-10-08 07:30 | NUR ---
CONSENTS SIGNED AND PLACED ON CHART FOR POSSIBLE HEART CATH WITH .
--- NOTE | 2018-10-08 09:13 | NUR ---
PREOPT AND MEDICATED FOR HEADACHE AT THIS TIME. NO DISTRESS. RESTING WELL AT THIS TIME.
[2018-10-08 10:39] VITALS: Ht 162.6 cm; Wt 56.4 kg
[2018-10-08 10:41] VITALS: BP 105/51
--- NOTE | 2018-10-08 11:15 | NUR ---
PATIENT LEFT UNIT VIA BED FOR COMMUNICATIONS TOWER CLIMBER. NO DISTRESS UPON LEAVING UNIT.
--- NOTE | 2018-10-08 12:44 | NUR ---
RECEIVED REPORT FROM BOTTOM CAGER. PT HAD CLEAN HEART CATH. BACK TO UNIT SOON.
--- NOTE | 2018-10-08 12:53 | NUR ---
RECEIVED PATIENT BACK FROM THE INTERNAL CONTROLS CONSULTANT AT THIS TIME. DROWSEY BUT EASILY AROUSED. PERIPHERAL PULSES PATENT. TR BAND TO RIGHT WRIST PATENT. NO BLEEDING FROM SITE. IV FLUIDS INFUSING ORDERED. NO DISTRESS. CALL LIGHT WITHIN REACH. ICE CHIPS PROVIDED REQUESTED.
--- NOTE | 2018-10-08 15:23 | NUR ---
TR BAND TO RIGHT WRIST REMOVED. NO BLEEDING FROM SITE. 2X2 GAUZE APPLIED AND SECURED WITH CLEAR TEGADERM. PATIENT SITTING UP IN BED EATING PEANUT BUTTER CRACKERS AT THIS TIME. NO DISTRESS.
--- NOTE | 2018-10-08 17:00 | NUR ---
RESTING IN BED WITH EYES OPEN. ATTENTION TOWARD TELEVISION. HOME MEDS RESTARTED PER NURSING MESSAGE FOR HOME MED RECONCILIATION. NO DISTRESS. CALL LIGHT WITHIN REACH.
[2018-10-08 17:11] VITALS: BP 102/43
--- NOTE | 2018-10-08 17:34 | NUR ---
MEDICATED FOR MIGRAINE AT THIS TIME. NO DISTRESS.
--- NOTE | 2018-10-08 19:34 | NUR ---
RECIEVED STANDING UP IN ROOM WITH AIDE CHANGING BED. STATES SHE SPILLED WATER AND SAID I'M SORRY. ALERT AND ORIENTED X4. DENIES ANY NEEDS AT THIS TIME.
[2018-10-08 20:30] VITALS: BP 112/49
[2018-10-09 04:30] VITALS: BP 97/58
[2018-10-09 09:17] VITALS: BP 124/59
--- NOTE | 2018-10-09 10:07 | NUR ---
NO NEEDS OR C/O BOICED. AT BS. CALL LIGHT IN REACH. WILL MONITOR.
--- NOTE | 2018-10-09 12:35 | NUR ---
DISCHARGE INSTRUCTIONS GIVEN TO PT. QUESTIONS ANSWERED. CHART COPY SIGNED. TELEMETRY DC'D. LEFT HAND IV DC'D WITH CATH INTACT.
--- NOTE | 2018-10-10 09:02 | MORECARE ---
CASE MANAGEMENT DISCHARGE SUMMARY PATIENT: HECTOR RAMIREZ UNIT: [id number] ADM DATE: 10/07/18 AGE: 78 : 39 SEX: F ROOM/BED: D.2124 AUTHOR: KLAUS LORENZ PHYSICIAN: REFERRING PHYSICIAN: JENNIFER GAO MD DATE OF SERVICE: 10/10/18 Discharge Plan Patient Name: HECTOR RAMIREZ Facility: [facility]:[place] : 1940 Planned Disposition: Home Anticipated Discharge Date: 10/09/18 Discharge Date: 10/09/2018 Expected LOS: 2 Initial Reviewer: [email or web address] Initial Review Date: 10/10/2018 Generated: 10/10/18 10:02 am Patient Name: HECTOR RAMIREZ Page [id number] at 0902 All edits/amendments must be made on the electronic document DICTATION DATE: 10/10/18901 MAINTENANCE SERVICE TECHNICIAN: DM 10/10/18901 RPT#: [id number] DC DATE:10/09/18 STATUS: DIS IN [facility] [address] [place] [address] END OF REPORT
--- NOTE | 2018-10-11 10:23 | EC ---
PATIENT:HECTOR RAMIREZ DATE OF SERVICE: 10/07/18 SEX: F MEDICAL RECORD: [id number] DATE OF : 38 LOCATION:D.M2 D.212 AGE OF PATIENT: 78 ADMISSION DATE: 10/07/18 REFERRING PHYSICIAN: INTERPRETING PHYSICIAN: JENNIFER NICHOLAS MD ECHOCARDIOGRAM REPORT ECHO CHARGES 4 ECHO COMPLETE Date: 10/08/18 CLINICAL DIAGNOSIS: SOB ECHOCARDIOGRAPHIC MEASUREMENTS (adult normal given) AC root (d.<3.7cm) 3.3 cm LV Septum d (<1.2 cm> 0.9 cm Valve Excursion 1.1 cm LV Septum (systole) 1.0 cm Left Atria (s.<4.0cm> 2.2 cm LVPW d(<1.2cm) 0.9 cm RV (d.<2.3cm) 3.0 cm LVPW (sytole) 1.0 cm LV diastole(<5.6CM) 5.2 cm MV E-F(>70mm/sec) cm LV systole 4.7 cm LVOT Diameter 1.4 cm MV exc.(>10mm) cm Est.ejection fraction (50-75%) % DOPPLER: LVIT cm/sec A 87 cm/sec E 73 cm/sec LA cm/sec RVSP 34.0 mmHg LVOT 134 cm/sec AOP1/2T m/s Asc. Ao 190 cm/sec RVOT 95 cm/sec RA cm/sec PA 103 cm/sec AV Gradient Peak 14.4 mmHg AV Mean 8.1 mmHg AV Area 1.1 cm MV Gradient Peak 3.3 mmHg MV Mean 1.9 mmHg MV Area cm COMMENTS: On Air Host: Meet GOLDMAN Furniture Finisher: 1 Dr. Nicholas TAPE# PACS Pericardial Effusion N DATE OF SERVICE: 10/09/2018 FINDINGS: 1. Left ventricular chamber size is within normal limits. Left ventricular systolic function is normal. Overall ejection fraction estimated at 60%. 2. Left atrium, right atrium, and right ventricle chamber sizes are within normal limits. 3. Valvular structures have normal structure and motion. 4. Doppler interrogation reveals mild tricuspid regurgitation, no other valvular insufficiency or stenosis. Pulmonary systolic pressure is estimated at ECHOCARDIOGRAM REPORT [id number] HECTOR RAMIREZ 34 mmHg. 5. No evidence of pericardial effusion or left ventricular thrombus. TRANSINT:[id number] Voice Confirmation ID: [id number] DOCUMENT ID: [id number] JENNIFER NICHOLAS MD at 1023 CC: [id number] DICTATION DATE: 10/09/18 1203 LAND SURVEYING MANAGER: 10/09/18 1412 DIS IN 10/09/18 [place] [id number] [place] [id number]
--- NOTE | 2018-10-11 10:23 | OP ---
PATIENT NAME: HECTOR RAMIREZ MEDICAL RECORD: [id number] :38 LOCATION:D.M2 D.2124 ADMISSION DATE:10/07/18 SURGEON: JENNIFER GAO MD DATE OF OPERATION: 10/08/2018 DATE OF SERVICE: 10/08/2018 PROCEDURES: 1. Left heart catheterization. 2. Selective coronary angiography. 3. Left ventriculogram. INDICATION: Chest pain, shortness of breath, elevated troponin. DESCRIPTION OF PROCEDURE: After informed consent was obtained and after a detailed description of risks, benefits as well as alternative therapies, the patient elected to proceed with angiogram and heart catheterization. The right radial area was prepped and draped in normal sterile fashion. Right radial artery was cannulated via modified Seldinger technique with placement of 5-Vietnamese sheath. All catheters exchanged through this sheath. FINDINGS: Left ventriculogram was performed in standard 30-degree DE LOS SANTOS view, reveals good cardiac wall motion throughout all segments. Overall ejection fraction is estimated at 70%. SELECTIVE CORONARY ANGIOGRAPHY: Left main, left anterior descending, left circumflex, and right coronary artery are all smooth-walled vessels with no angiographic evidence of coronary artery disease. OVERALL IMPRESSION: 1. No angiographic evidence of coronary artery disease. 2. Normal left heart pressures. 3. Normal left ventricular systolic function. Chest pain is noncardiac in etiology. No further cardiac workup needs to be ascertained. TRANSINT:[id number] Voice Confirmation ID: [id number] DOCUMENT ID: [id number] JENNIFER GAO MD at 1023 CC: [id number] DICTATION DATE: 10/08/18 1239 AUTOMOTIVE SERVICE MANAGEMENT TEACHER: 10/08/18 1300 DIS IN 10/09/18 [place] [id number] [place] [id number]
--- NOTE | 2018-10-11 10:23 | HP ---
PATIENT: HECTOR MUSTAFA MEDICAL RECORD: [id number] ACCOUNT: [id number] LOCATION:[address] : [birth year] ADMISSION DATE: 10/07/18 PCP: WHITLEY COLLIER MD HISTORY AND PHYSICAL EXAMINATION DIAGNOSES: 1. Non-Q-wave myocardial infarction. 2. Coronary artery disease. 3. Hypertension. 4. Hyperlipidemia. HISTORY OF PRESENT ILLNESS: Ms. Mustafa presents with chest pain and shortness of breath for the past 3 days. Her troponin is elevated. She continues to have her symptomatology. She has no history of ischemic heart disease. REVIEW OF SYSTEMS: The patient reports easy bruising but reports no swollen glands. The patient reports no fever, no night sweats, no significant weight gain, no significant weight loss. No significant exercise tolerance. The patient reports no dry eyes, no irritation, no vision change. Patient reports no difficulty hearing and no ear pain. Patient reports no frequent nose bleeds or nose and sinus problems. Patient reports on arm pain on exertion. No shortness of breath while lying down. No history of heart murmur. Patient reports no cough, no wheezing or coughing up blood. Patient reports no abdominal pain, no vomiting. Normal appetite. No diarrhea and not vomiting blood. No nausea and no constipation. Patient reports no incontinence. No difficulty urinating. No hematuria. No increased frequency. Patient reports no muscle aches. No weakness, no arthralgias, no back pain. No swelling of the extremities. Patient reports no abnormal mole, no jaundice, no rashes. Reports no loss of consciousness. No weakness and no numbness. No seizures, dizziness, or headaches. The patient reports no depression, no sleep disturbance, feeling safe in a relationship and no alcohol abuse. Patient reports on fatigue. Reports no runny nose or sinus pressure. No itching, no hives, and no frequent sneezing. PHYSICAL EXAMINATION: GENERAL APPEARANCE: Well-nourished, well-developed, appears stated age. Level of distress, comfortable. PSYCHIATRIC: Mental status, alert, normal affect. Orientation, oriented to time, place and person. EYES: Lids and conjunctiva, noninjected. No discharge, no pallor. ENT: Lips, teeth, gums, normal dentition. Oropharynx, no cyanosis, no pallor. NECK: Carotid arteries, bilateral normal upstroke, no bruits, no thrills. JUGULAR VEINS: No jugular venous pressure or distention. CERVICAL LYMPH NODES: Nontender, nonenlarged. THYROID: Not enlarged. Nontender. No nodules. LUNGS: Respiratory effort, unlabored. CHEST: Normal curvature. No thoracic deformity. No chest wall tenderness. Percussion, resonant. Auscultation, clear. No wheezes, no rales, no rhonchi. CARDIOVASCULAR: Precordial exam, nondisplaced. No heaves or pericardial thrills. Rate and rhythm, regular. Heart sounds, normal S1, normal S2. No S3, no gallop, no rub. Systolic murmur, not heard. Diastolic murmur, not heard. EXTREMITIES: No cyanosis, no edema. Peripheral pulses, full and equal in all extremities, except as noted. No bruits appreciated. ABDOMEN: Soft, nondistended. Normal aorta. No bruit. Nontender. No masses. Liver, nontender, no hepatomegaly. Spleen, nontender, no splenomegaly. HISTORY AND PHYSICAL [id number] HECTOR MUSTAFA MUSCULOSKELETAL: No joint tenderness. No joint swelling. No erythema. NEUROLOGICAL: Normal gait, normal strength, normal tone. SKIN: Warm and dry. OVERALL IMPRESSION: Non-Q-wave myocardial infarction with continued angina. We will proceed with coronary angiography. Further care depends upon findings of the angiography. TRANSINT:[id number] Voice Confirmation ID: [id number] DOCUMENT ID: [id number] JENNIFER GAO MD at 1023 CC: [id number] DICTATION DATE: 10/08/18 0908 CHANGE MANAGEMENT: 10/08/18 1042 DIS IN 10/09/18 [facility] [address] [place] [address]
--- NOTE | 2018-10-11 10:23 | DS ---
PATIENT:HECTOR MUSTAFA :38 MEDICAL RECORD: [id number] DISCHARGE SUMMARY ADMISSION DATE: 10/07/18 DISCHARGE DATE: 10/09/18 DISCHARGE DIAGNOSES: 1. Chest discomfort compatible with angina. 2. Normal cardiac catheterization. HOSPITAL COURSE: Ms. Mustafa presents with anginal symptomatology; however, cardiac catheterization was normal. Most likely it is GERD, we have asked her to follow up with her primary care doctor and start shbc-own-kdlamxa GI-directed medication such as Nexium or Prilosec. No cardiac followup is necessary. TRANSINT:[id number] Voice Confirmation ID: [id number] DOCUMENT ID: [id number] JENNIFER GAO MD at 1023 CC: [id number] DICTATION DATE: 10/09/18 1102 TILT TRAY DRIVER: 10/09/18 2312 DIS IN 10/09/18 [place] [id number] [place] [address]
== END 2018-10-09 12:36 | disposition home or self-care (01) ==
LOC: D.ER 14:02 → D.EDHOLD 16:59 → D.M2 17:58 → OBSVTIME 10-09 11:59 → D.M2 10-09 12:36
PROVIDERS: Family Medicine; ADMIT Internal Medicine Interventional Cardiology
DX: R07.89 Other chest pain (principal); R79.89 Other specified abnormal findings of blood chemistry; I10 Essential (primary) hypertension; E78.5 Hyperlipidemia, unspecified; I25.10 Atherosclerotic heart disease of native coronary artery without angina pectoris; Z95.1 Presence of aortocoronary bypass graft

== ENCOUNTER 2018-11-05 12:43 | Emergency (ER) | payer MEDICARE, OTHER ==
[~2018-11-05] VITALS: Ht 162.6 cm; Wt 54.5 kg
[2018-11-05 13:02] VITALS: Ht 162.6 cm; Wt 54.5 kg
[2018-11-05 14:06] LABS: BASOPHILS 0.2 % (0-2); EOSINOPHILS 1.5 % (0-7); HEMOGLOBIN 13.6 g/dL (12-16); IMMATURE GRANULOCYTES 0.2 % (0-5); LYMPHOCYTES 25.1 % (15-50); MCHC 33.2 g/dL (31.0-37.0); MCV 90.5 fL (80.0-100.0); MEAN PLATELET VOLUME 10.4 fL (7.4-10.4); MONOCYTES 14.3 % (2-11); NEUTROPHILS 58.7 % (40-80); PLATELET COUNT 336 10x3/uL (130-400); RBC 4.53 10x6/uL (4.00-5.40); RDW 14.1 % (11.5-14.5); WBC 9.9 10x3/uL (4.8-10.8)
[2018-11-05 14:20] LABS: ALBUMIN 3.5 g/dL (3.4-5.0); ALKALINE PHOSPHATASE 128 U/L (46-116); ALT (SGPT) 26 U/L (10-68); BILIRUBIN - TOTAL 0.32 mg/dL (0.2-1.3); CALC OSMOLALITY 287 mosm/kg (275-300); CALCIUM 9.4 mg/dL (8.5-10.1); CARBON DIOXIDE 29.7 mmol/L (21.0-32.0); CHLORIDE - SERUM 104 mmol/L (98-107); CREATININE - SERUM 0.8 mg/dL (0.6-1.3); GLUCOSE 103 mg/dL (74-106); POTASSIUM - SERUM 4.6 mmol/L (3.5-5.1); PROTEIN - SERUM 7.7 g/dL (6.4-8.2); SODIUM 143 mmol/L (136-145); UREA NITROGEN 22 mg/dL (7-18); eGFR NON AFRICAN AMERICAN 73 mL/min (90-120)
[2018-11-05 14:30] LABS: CKMB 2.5 U/L (0.0-3.6); LIPASE 139 U/L (73-393)
[2018-11-05 14:41] LABS: TROPONIN-I < 0.017 ng/mL (0.000-0.060)
[2018-11-05] MEDS ORDERED: ZPAK PO (15:27)
[2018-11-05] MEDS ORDERED: MEDROL DOSE PACK4 MG PO (15:27)
[2018-11-05 15:48] VITALS: BP 154/70
== END 2018-11-05 15:49 | disposition home or self-care (01) ==
LOC: D.ER 12:43
PROVIDERS: Family Medicine
DX: J40 Bronchitis, not specified as acute or chronic (principal); M54.6 Pain in thoracic spine; J44.9 Chronic obstructive pulmonary disease, unspecified

== ENCOUNTER → 2018-11-29 13:51 | Outpatient (CLI) | payer MEDICARE, OTHER ==
[2018-11-05 13:02] VITALS: BMI 20.6
[~2018-11-29 13:51] MED LIST changes: +MEDROL DOSE PACK4 MG PO; +ZPAK PO
== END | disposition home or self-care (01) ==
LOC: D.RAD 13:51
PROVIDERS: ATTEND Internal Medicine Pulmonary Disease
DX: J44.9 Chronic obstructive pulmonary disease, unspecified (principal)

== ENCOUNTER 2019-01-08 13:32 | Emergency (ER) | payer MEDICARE, OTHER ==
[~2019-01-08] VITALS: Ht 162.6 cm; Wt 54.5 kg
[2019-01-08 13:37] VITALS: Ht 162.6 cm; Wt 54.5 kg
[2019-01-08 14:37] LABS: BASOPHILS 0.1 % (0-2); EOSINOPHILS 0.7 % (0-7); HEMATOCRIT 41.8 % (36.0-48.0); HEMOGLOBIN 13.8 g/dL (12-16); IMMATURE GRANULOCYTES 0.2 % (0-5); LYMPHOCYTES 18.5 % (15-50); MCH 30.3 pg (26.0-34.0); MCV 91.9 fL (80.0-100.0); MEAN PLATELET VOLUME 10.5 fL (7.4-10.4); MONOCYTES 14.2 % (2-11); NEUTROPHILS 66.3 % (40-80); RBC 4.55 10x6/uL (4.00-5.40); RDW 13.6 % (11.5-14.5); WBC 15.2 10x3/uL (4.8-10.8)
[2019-01-08 14:41] LABS: PLATELET COUNT 226 10x3/uL (130-400)
[2019-01-08 14:47] LABS: APTT 26.8 SECONDS (22.8-39.4); INR 1.01 (0.85-1.17); PROTIME 12.8 SECONDS (11.6-15.0)
[2019-01-08 15:00] LABS: ALBUMIN 3.2 g/dL (3.4-5.0); ALKALINE PHOSPHATASE 130 U/L (46-116); ALT (SGPT) 21 U/L (10-68); BILIRUBIN - TOTAL 0.35 mg/dL (0.2-1.3); CALC OSMOLALITY 282 mosm/kg (275-300); CALCIUM 8.9 mg/dL (8.5-10.1); CARBON DIOXIDE 30.9 mmol/L (21.0-32.0); CHLORIDE - SERUM 104 mmol/L (98-107); CREATININE - SERUM 0.8 mg/dL (0.6-1.3); GLUCOSE 104 mg/dL (74-106); PROTEIN - SERUM 6.4 g/dL (6.4-8.2); SODIUM 141 mmol/L (136-145); UREA NITROGEN 17 mg/dL (7-18); eGFR NON AFRICAN AMERICAN 73 mL/min (90-120)
[2019-01-08 15:13] LABS: CKMB 1.7 U/L (0.0-3.6); CREATINE KINASE 128 UL (21-215); PRO BNP 512 pg/mL (0-450); TROPONIN-I 0.022 ng/mL (0.000-0.060)
[2019-01-08 15:15] LABS: D-DIMER-QUANTITATIVE 0.58 ug/mLFEU (0.20-0.54)
[2019-01-08 16:12] LABS: APPEARANCE CLOUDY (CLEAR); BILIRUBIN NEGATIVE (NEGATIVE); COLOR YELLOW (YELLOW); GLUCOSE NEGATIVE (NEGATIVE); KETONE NEGATIVE (NEGATIVE); NITRITE NEGATIVE (NEGATIVE); PROTEIN NEGATIVE (NEGATIVE); UROBILINOGEN NORMAL (NORMAL)
[2019-01-08 16:14] LABS: BACTERIA FEW /hpf (NONE SEEN); EPITHELIAL CELLS 0-5 /hpf (0-5); MUCUS <1+ /lpf (NONE SEEN)
[2019-01-08] MEDS ORDERED: MACROBID100 MG PO (16:44)
[2019-01-08 16:55] VITALS: BP 157/78
== END 2019-01-08 16:55 | disposition home or self-care (01) ==
LOC: D.ER 13:32
PROVIDERS: Family Medicine
DX: N39.0 Urinary tract infection, site not specified (principal); G43.901 Migraine, unspecified, not intractable, with status migrainosus

== ENCOUNTER 2019-08-06 11:59 | Inpatient (IN) | payer MEDICARE, OTHER ==
[~2019-08-06] VITALS: Ht 162.6 cm; Wt 58.1 kg
[~2019-08-06 11:59] MED LIST changes: +MACROBID100 MG PO
[2019-08-06 12:00] VITALS: BP 159/72
[2019-08-06 12:42] LABS: BASOPHILS 0.1 % (0-2); EOSINOPHILS 0.6 % (0-7); HEMOGLOBIN 14.4 g/dL (12-16); IMMATURE GRANULOCYTES 0.2 % (0-5); MCH 30.5 pg (26.0-34.0); MCV 95.3 fL (80.0-100.0); MEAN PLATELET VOLUME 10.3 fL (7.4-10.4); MONOCYTES 13.4 % (2-11); NEUTROPHILS 72.7 % (40-80); PLATELET COUNT 334 10x3/uL (130-400); RBC 4.72 10x6/uL (4.00-5.40); RDW 13.6 % (11.5-14.5); WBC 18.2 10x3/uL (4.8-10.8)
[2019-08-06 12:50] LABS: APTT 27.2 SECONDS (22.8-39.4); CALC OSMOLALITY 279 mosm/kg (275-300); CALCIUM 8.5 mg/dL (8.5-10.1); CARBON DIOXIDE 30.3 mmol/L (21.0-32.0); CHLORIDE - SERUM 102 mmol/L (98-107); CREATININE - SERUM 0.9 mg/dL (0.6-1.3); GLUCOSE 106 mg/dL (74-106); INR 1.02 (0.85-1.17); POTASSIUM - SERUM 4.4 mmol/L (3.5-5.1); PROTIME 12.9 SECONDS (11.6-15.0); SODIUM 140 mmol/L (136-145); UREA NITROGEN 15 mg/dL (7-18); eGFR NON AFRICAN AMERICAN 64 mL/min (90-120)
[2019-08-06 12:52] LABS: D-DIMER-QUANTITATIVE 1.08 ug/mLFEU (0.20-0.54)
[2019-08-06 13:08] LABS: ALBUMIN 3.2 g/dL (3.4-5.0); ALKALINE PHOSPHATASE 158 U/L (46-116); ALT (SGPT) 29 U/L (10-68); BILIRUBIN - TOTAL 0.57 mg/dL (0.2-1.3); CKMB 0.5 U/L (0.0-3.6); CREATINE KINASE 86 UL (21-215); PRO BNP 834 pg/mL (0-450); PROTEIN - SERUM 7.3 g/dL (6.4-8.2)
[2019-08-06 13:10] LABS: TROPONIN-I < 0.017 ng/mL (0.000-0.060)
[2019-08-06 13:53] VITALS: BP 151/69
[2019-08-06 15:42] VITALS: BP 122/63
--- NOTE | 2019-08-06 15:42 | NUR ---
PATIENT GOING TO GET HER LUNG SCAN PER TECH
--- NOTE | 2019-08-06 16:33 | NUR ---
TOOK PATIENT TO HER ROOM AFTER LUNG SCAN WAS COMPLETED.
[2019-08-06 17:04] VITALS: BP 122/57
--- NOTE | 2019-08-06 17:45 | NUR ---
PT ARRIVES TO UNIT FROM ER, SL TO LEFT FOREARM, O2 AT 2L PER NC, LAB HERE TO DRAW BLOOD, PT REQUESTING HER MORPHINE, CONT TO MONITOR
[2019-08-06 20:01] VITALS: BP 103/52
--- NOTE | 2019-08-06 20:25 | NUR ---
WATCCHING TV QUIETLY WITH NO DISTRESS NOTED. O2 @ 1.5 L PER NC ON. RESP UNLABORED. SL TO LFA INTACT WITHOUT REDNESS OR EDEMA NOTED. CL IN REACH.
[2019-08-07 00:30] VITALS: BP 107/56
--- NOTE | 2019-08-07 02:45 | NUR ---
I have reviewed this patient and I concur with the Shift Assessment completed by the Licensed Practical Nurse today this shift.
[2019-08-07 05:00] VITALS: BP 98/57
[2019-08-07 08:33] VITALS: BP 119/49
[2019-08-07 08:36] LABS: ANION GAP 7.7 mmol/L (8-16); CALCIUM 8.6 mg/dL (8.5-10.1); CARBON DIOXIDE 30.4 mmol/L (21.0-32.0); CREATININE - SERUM 0.9 mg/dL (0.6-1.3); POTASSIUM - SERUM 4.1 mmol/L (3.5-5.1)
[2019-08-07 08:48] LABS: HEMATOCRIT 37.8 % (36.0-48.0); HEMOGLOBIN 12.2 g/dL (12-16); MCHC 32.3 g/dL (31.0-37.0); MCV 93.1 fL (80.0-100.0); MEAN PLATELET VOLUME 10.3 fL (7.4-10.4); PLATELET COUNT 309 10x3/uL (130-400); RBC 4.06 10x6/uL (4.00-5.40); RDW 13.6 % (11.5-14.5); WBC 22.1 10x3/uL (4.8-10.8)
[2019-08-07 09:45] LABS: EOSINOPHILS 2 % (0-7); LYMPHOCYTES 14 % (15-50); MONOCYTES 8 % (2-11); NEUTROPHILS 73 % (40-80); PLATELET ESTIMATE NORMAL
[2019-08-07 12:12] VITALS: Ht 162.6 cm; Wt 58.1 kg
[2019-08-07 12:54] LABS: APPEARANCE HAZY (CLEAR); COLOR YELLOW (YELLOW)
[2019-08-07 12:55] LABS: BACTERIA FEW /hpf (NEGATIVE); BILIRUBIN NEGATIVE (NEGATIVE); EPITHELIAL CELLS 0-5 /hpf (0-5); GLUCOSE NEGATIVE (NEGATIVE); KETONE NEGATIVE (NEGATIVE); MUCUS >1+ /lpf (NONE SEEN); NITRITE NEGATIVE (NEGATIVE); PROTEIN TRACE mg/dL (NEGATIVE); RED CELLS - URINE RARE /hpf (0-5); UROBILINOGEN NORMAL (NORMAL); WHITE CELLS - URINE OCC /hpf (NEGATIVE)
--- NOTE | 2019-08-07 13:28 | NUR ---
GAVE PT INCENTIVE SPIROMETER, INSTRUCTED ON HOW TO USE. WAITING FOR CENTRAL SUPPLY TO BRING UP MORE FLUTTER VALVES. WILL CONT TO MONITOR.
[2019-08-07 13:34] VITALS: BP 139/67
[2019-08-07 17:51] VITALS: BP 119/62
[2019-08-07 20:00] VITALS: BP 109/59
--- NOTE | 2019-08-07 20:00 | NUR ---
ALERT RESTING IN BED, DENIES PAIN OR NEEDS AT THIS TIME, SEE SHIFT ASSESSMENT, CALL LIGHT IN REACH
[2019-08-08 00:39] VITALS: BP 100/54
[2019-08-08 04:00] VITALS: BP 137/72
[2019-08-08 07:04] LABS: ANION GAP 11.4 mmol/L (8-16); CALCIUM 8.5 mg/dL (8.5-10.1); CARBON DIOXIDE 29.9 mmol/L (21.0-32.0); CREATININE - SERUM 1.1 mg/dL (0.6-1.3); POTASSIUM - SERUM 4.3 mmol/L (3.5-5.1)
[2019-08-08 07:23] LABS: BASOPHILS 0 % (0-2); EOSINOPHILS 0 % (0-7); HEMATOCRIT 36.5 % (36.0-48.0); HEMOGLOBIN 11.7 g/dL (12-16); IMMATURE GRANULOCYTES 0.4 % (0-5); LYMPHOCYTES 6.7 % (15-50); MCH 29.6 pg (26.0-34.0); MCHC 32.1 g/dL (31.0-37.0); MCV 92.4 fL (80.0-100.0); MEAN PLATELET VOLUME 11.1 fL (7.4-10.4); NEUTROPHILS 85.9 % (40-80); PLATELET COUNT 362 10x3/uL (130-400); RBC 3.95 10x6/uL (4.00-5.40); RDW 13.7 % (11.5-14.5); WBC 26.8 10x3/uL (4.8-10.8)
[2019-08-08 07:50] VITALS: BP 108/56
--- NOTE | 2019-08-08 07:53 | NUR ---
PT RESTING IN BED WITH EYES CLOSED, NO S/S OF DISTRESS NOTED AT THIS TIME. CURRENTLY RCVING 2L VIA NC. IV LOCATED TO LEFT FOREARM CURRENTLY SL. WILL CONT TO MONITOR.
[2019-08-08 13:27] VITALS: BP 125/59
[2019-08-08 16:52] VITALS: BP 113/55
[2019-08-08 20:00] VITALS: BP 129/66
--- NOTE | 2019-08-08 20:00 | NUR ---
ALERT RESTING IN BED DENIES PAIN OR NEEDS AT THIS TIME, SEE SHIFT ASSESSMENT CALL LIGHT IN REACH
[2019-08-09] VITALS: BP 121/62
[2019-08-09 04:30] VITALS: BP 111/50
[2019-08-09 06:25] LABS: BASOPHILS 0 % (0-2); EOSINOPHILS 0 % (0-7); HEMATOCRIT 35.8 % (36.0-48.0); HEMOGLOBIN 11.3 g/dL (12-16); IMMATURE GRANULOCYTES 0.2 % (0-5); LYMPHOCYTES 8.5 % (15-50); MCH 29.4 pg (26.0-34.0); MCHC 31.6 g/dL (31.0-37.0); MEAN PLATELET VOLUME 11.2 fL (7.4-10.4); MONOCYTES 4.7 % (2-11); NEUTROPHILS 86.6 % (40-80); PLATELET COUNT 374 10x3/uL (130-400); RBC 3.85 10x6/uL (4.00-5.40)
[2019-08-09 07:00] LABS: WBC 17.9 10x3/uL (4.8-10.8)
[2019-08-09 07:18] LABS: ANION GAP 12.6 mmol/L (8-16); CALCIUM 8.3 mg/dL (8.5-10.1); CARBON DIOXIDE 26.9 mmol/L (21.0-32.0); CREATININE - SERUM 0.8 mg/dL (0.6-1.3); POTASSIUM - SERUM 4.5 mmol/L (3.5-5.1)
--- NOTE | 2019-08-09 08:30 | NUR ---
PATIENT CO EXPLOSIVE DIARRHEA. WILL NOTIFY [facility] AND GET AN ORDER FOR IMMODIUM. CL IN REACH. WCTM
[2019-08-09 08:40] VITALS: BP 166/76
--- NOTE | 2019-08-09 11:13 | NUR ---
PATIENT ASSISTED WITH SHOWER. CLEAN LINENS PROVIDED. CL IN REACH. TM
[2019-08-09 12:40] VITALS: BP 159/79
--- NOTE | 2019-08-09 12:47 | MORECARE ---
CASE MANAGEMENT DISCHARGE SUMMARY PATIENT: STANISLAV RAMIREZ UNIT: [id number] ADM DATE: 08/06/19 AGE: 79 : 39 SEX: F ROOM/BED: D.2205 AUTHOR: KLAUS LORENZ PHYSICIAN: REFERRING PHYSICIAN: KATHY NAPIER MD DATE OF SERVICE: 08/09/19 Discharge Plan Patient Name: STANISLAV RAMIREZ Facility: [facility]:[place] : 1940 Planned Disposition: Home or Self Care Anticipated Discharge Date: Discharge Date: Expected LOS: Initial Reviewer: [email or web address] Initial Review Date: 08/06/2019 Generated: 08/09/19 1:46 pm DCPIA - Discharge Planning Initial Assessment Updated by [email or web address]: Chinyere Hopkins on 08/09/19 12:43 pm * Is the patient Alert and Oriented? Yes * How many steps to enter\exit or inside your home? * PCP CHANGING TO DR BHAKTA (I SPOKE WITH KERRI AT HER OFFICE) WAS SEEING DR COLLIER IN [place] * Pharmacy [facility] * Preadmission Environment Home Alone * ADLs Independent * Equipment None * List name and contact numbers for known caregivers / representatives who currently or will assist patient after discharge: TAYLA DUNBAR (SON) BAUTISTA DUNBAR (SON) [phone] * Verbal permission to speak to the caregivers and representatives has been obtained from the patient. N/A * Community resources currently utilized None * Additional services required to return to the preadmission environment? No * Can the patient safely return to the preadmission environment? Yes * Has this patient been hospitalized within the prior 30 days at any hospital? No Patient Name: STANISLAV RAMIREZ Page 25874 at 1247 All edits/amendments must be made on the electronic document DICTATION DATE: 08/09/191245 OUTFITTER CABIN: NAVIN 08/09/191245 RPT#: [id number] DC DATE: STATUS: ADM IN [facility] [address] [place] [address] END OF REPORT
--- NOTE | 2019-08-09 12:56 | MORECARE ---
CASE MANAGEMENT DISCHARGE SUMMARY PATIENT: STANISLAV RAMIREZ UNIT: [id number] ADM DATE: 08/06/19 AGE: 79 : 39 SEX: F ROOM/BED: D.2205 AUTHOR: KLAUS LORENZ PHYSICIAN: REFERRING PHYSICIAN: KATHY NAPIER MD DATE OF SERVICE: 08/09/19 Discharge Plan Patient Name: STANISLAV RAMIREZ Facility: [facility]:[place] : 1940 Planned Disposition: Home or Self Care Anticipated Discharge Date: Discharge Date: Expected LOS: Initial Reviewer: [email or web address] Initial Review Date: 08/06/2019 Generated: 08/09/19 1:55 pm Comments DCP- Discharge Planning Updated by [email or web address]: Chinyere Hopkins on 08/09/19 11:[address] Patient Name: STANISLAV RAMIREZ Admission Status: Elective Accout number: [id number] Admission Date: 08-06-2019 : 1940 Admission Diagnosis: Attending: KATHY NAPIER Current LOS: 3 Anticipated DC Date: Planned Disposition: Home or Self Care Primary Insurance: MEDICARE A & B Discharge Planning Comments: CM met with patient to complete initial dc planning assessment. CM educated patient on the CM role and verbal consent given by patient to complete assessment. Patient lives at home where she is independent with her care at home. At discharge patient plans to return home and feels this is a safe discharge. Her son Leonardo will be her speedboat driver home and will stay with her if needed. CM discussed availability of home health, rehab services, and medical equipment. She did not feel like she needed home health and she does not use any DME. Patient did ask me if I could help her with finding a female MD in [place] who is taking new patients. She is currently seeing a Dr Freeman in [place], but would like to have someone local. I spoke with her about Dr Tang and Dr Molina. She would like to have someone close to her home and asked if I would call Dr Molina's office. I called and spoke with Trevon and she is taking new patients and will get in touch with the patient to get an appointment. I send Trevon the patient's facesheet and h&p. I have also let the patient know, she is very excited. Patient denied known discharge needs at this time. CM will continue to follow and will assist as needed with dc plans/needs. Health Plan Manager: Chinyere Hopkins DCPIA - Discharge Planning Initial Assessment Updated by [email or web address]: Chinyere Hopkins on 08/09/19 12:43 pm * Is the patient Alert and Oriented? Yes * How many steps to enter\exit or inside your home? * PCP CHANGING TO DR MOLINA (I SPOKE WITH TREVON AT HER OFFICE) WAS SEEING DR FREEMAN IN [place] * Pharmacy [facility] * Preadmission Environment Home Alone * ADLs Independent * Equipment None * List name and contact numbers for known caregivers / representatives who currently or will assist patient after discharge: LEONARDO DUNBAR (SON) BAUTISTA DUNBAR (SON) [phone] * Verbal permission to speak to the caregivers and representatives has been obtained from the patient. N/A * Community resources currently utilized None * Additional services required to return to the preadmission environment? No * Can the patient safely return to the preadmission environment? Yes * Has this patient been hospitalized within the prior 30 days at any hospital? No Last DP export: 08/09/19 11:47 Patient Name: STANISLAV RAMIREZ Page 20547 at 1256 All edits/amendments must be made on the electronic document DICTATION DATE: 08/09/19 125 TEACHER VOCATIONAL TRAINING: NAIVN 08/09/19 125 RPT#: [id number] DC DATE: STATUS: ADM IN [facility] [address] [place] [address] END OF REPORT
[2019-08-09 16:06] VITALS: BP 117/69
[2019-08-09 20:00] VITALS: BP 130/69
[2019-08-10 04:00] VITALS: BP 150/83
[2019-08-10 06:11] LABS: BASOPHILS 0.1 % (0-2); EOSINOPHILS 0 % (0-7); HEMATOCRIT 36.1 % (36.0-48.0); HEMOGLOBIN 11.6 g/dL (12-16); IMMATURE GRANULOCYTES 0.4 % (0-5); LYMPHOCYTES 23.1 % (15-50); MCH 29.7 pg (26.0-34.0); MCHC 32.1 g/dL (31.0-37.0); MCV 92.3 fL (80.0-100.0); MEAN PLATELET VOLUME 10.6 fL (7.4-10.4); MONOCYTES 17.8 % (2-11); NEUTROPHILS 58.6 % (40-80); PLATELET COUNT 394 10x3/uL (130-400); RBC 3.91 10x6/uL (4.00-5.40); WBC 15.4 10x3/uL (4.8-10.8)
[2019-08-10 06:40] LABS: ANION GAP 6.4 mmol/L (8-16); CALCIUM 8.3 mg/dL (8.5-10.1); CARBON DIOXIDE 32.1 mmol/L (21.0-32.0); CREATININE - SERUM 0.9 mg/dL (0.6-1.3)
[2019-08-10 06:42] LABS: POTASSIUM - SERUM 3.5 mmol/L (3.5-5.1)
[2019-08-10 08:46] VITALS: BP 120/71
[2019-08-10] MEDS ORDERED: MUCINEX DM ER1 EAC1 PO (11:31)
[2019-08-10] MEDS ORDERED: SINGULAIR10 MG PO (11:31)
[2019-08-10] MEDS ORDERED: TESSALON PERLE100 MG PO (11:31)
[2019-08-10] MEDS ORDERED: FLUTICASONE PRO16 GM NASAL (11:32)
--- NOTE | 2019-08-10 12:40 | NUR ---
IV THERAPY DC'ED FROM LEFT FOREARM. TIP INTACT. DISCHARGE INSTRUCTIONS GIVEN. PATIENT VERBALIZED UNDERSTANDING. VOLUNTEERS CALLED TO WHEEL OUT
--- NOTE | 2019-08-10 13:15 | MORECARE ---
CASE MANAGEMENT DISCHARGE SUMMARY PATIENT: STANISLAV RAMIREZ UNIT: [id number] ADM DATE: 08/06/19 AGE: 79 : 39 SEX: F ROOM/BED: D.2205 AUTHOR: KLAUS LORENZ PHYSICIAN: REFERRING PHYSICIAN: KATHY NAPIER MD DATE OF SERVICE: 08/10/19 Discharge Plan Patient Name: STANISLAV RAMIREZ Facility: [facility]:[place] : 1940 Planned Disposition: Home or Self Care Anticipated Discharge Date: Discharge Date: 08/10/2019 Expected LOS: Initial Reviewer: [email or web address] Initial Review Date: 08/06/2019 Generated: 08/10/19 2:14 pm Comments DCP- Discharge Planning Updated by [email or web address]: Chinyere Hopkins on 08/10/19 12:[address] WENT TO SERVE [facility] AND PATIENT WAS ALREADY DISCHARGED. SHE DID NOT HAVE ANY DISCHARGE NEEDS AND HER SON WAS GOING TO DRIVE HER HOME. DCP- Discharge Planning Updated by [email or web address]: Chinyere Hopkins on 08/09/19 11:[address] Patient Name: STANISLAV RAMIREZ Admission Status: Elective Accout number: [id number] Admission Date: 08-06-2019 : 1940 Admission Diagnosis: Attending: KATHY NAPIER Current LOS: 3 Anticipated DC Date: Planned Disposition: Home or Self Care Primary Insurance: MEDICARE A & B Discharge Planning Comments: CM met with patient to complete initial dc planning assessment. CM educated patient on the CM role and verbal consent given by patient to complete assessment. Patient lives at home where she is independent with her care at home. At discharge patient plans to return home and feels this is a safe discharge. Her son Leonardo will be her fast food delivery driver home and will stay with her if needed. CM discussed availability of home health, rehab services, and medical equipment. She did not feel like she needed home health and she does not use any DME. Patient did ask me if I could help her with finding a female MD in [place] who is taking new patients. She is currently seeing a Dr Freeman in [place], but would like to have someone local. I spoke with her about Dr Tang and Dr Molina. She would like to have someone close to her home and asked if I would call Dr Molina's office. I called and spoke with Trevon and she is taking new patients and will get in touch with the patient to get an appointment. I send Trevon the patient's facesheet and h&p. I have also let the patient know, she is very excited. Patient denied known discharge needs at this time. CM will continue to follow and will assist as needed with dc plans/needs. Box Puller: Chinyere Hopkins DCPIA - Discharge Planning Initial Assessment Updated by [email or web address]: Chinyere Hopkins on 08/09/19 12:43 pm * Is the patient Alert and Oriented? Yes * How many steps to enter\exit or inside your home? * PCP CHANGING TO DR MOLINA (I SPOKE WITH TREVON AT HER OFFICE) WAS SEEING DR FREEMAN IN [place] * Pharmacy [facility] * Preadmission Environment Home Alone * ADLs Independent * Equipment None * List name and contact numbers for known caregivers / representatives who currently or will assist patient after discharge: LEONARDO DUNBAR (SON) BAUTISTA DUNBAR (SON) [phone] * Verbal permission to speak to the caregivers and representatives has been obtained from the patient. N/A * Community resources currently utilized None * Additional services required to return to the preadmission environment? No * Can the patient safely return to the preadmission environment? Yes * Has this patient been hospitalized within the prior 30 days at any hospital? No Last DP export: 08/09/19 11:56 Patient Name: STANISLAV RAMIREZ Page 19097 at 1315 All edits/amendments must be made on the electronic document DICTATION DATE: 08/10/191313 BELL STAFF: NAVIN 08/10/191313 RPT#: [id number] DC DATE:08/10/19 STATUS: DIS IN [facility] [address] [place] [address] END OF REPORT
[2019-08-10] MEDS ORDERED: ELIQUIS5 MG PO (16:07)
--- NOTE | 2019-08-11 15:56 | MORECARE ---
CASE MANAGEMENT DISCHARGE SUMMARY PATIENT: STANISLAV RAMIREZ UNIT: [id number] ADM DATE: 08/06/19 AGE: 79 : 39 SEX: F ROOM/BED: D.2205 AUTHOR: KLAUS LORENZ PHYSICIAN: REFERRING PHYSICIAN: KATHY NAPIER MD DATE OF SERVICE: 08/11/19 Discharge Plan Patient Name: STANISLAV RAMIREZ Facility: [facility]:[place] : 1940 Planned Disposition: Home or Self Care Anticipated Discharge Date: Discharge Date: 08/10/2019 Expected LOS: Initial Reviewer: [email or web address] Initial Review Date: 08/06/2019 Generated: 08/11/19 4:55 pm Comments DCP- Discharge Planning Updated by [email or web address]: Chinyere Hopkins on 08/10/19 12:[address] WENT TO SERVE [facility] AND PATIENT WAS ALREADY DISCHARGED. SHE DID NOT HAVE ANY DISCHARGE NEEDS AND HER SON WAS GOING TO DRIVE HER HOME. DCP- Discharge Planning Updated by [id number]: Chinyere Hopkins on 08/09/19 11:[address] Patient Name: STANISLAV RAMIREZ Admission Status: Elective Accout number: [id number] Admission Date: 08-06-2019 : 1940 Admission Diagnosis: Attending: KATHY NAPIER Current LOS: 3 Anticipated DC Date: Planned Disposition: Home or Self Care Primary Insurance: MEDICARE A & B Discharge Planning Comments: CM met with patient to complete initial dc planning assessment. CM educated patient on the CM role and verbal consent given by patient to complete assessment. Patient lives at home where she is independent with her care at home. At discharge patient plans to return home and feels this is a safe discharge. Her son Leonardo will be her funeral driver home and will stay with her if needed. CM discussed availability of home health, rehab services, and medical equipment. She did not feel like she needed home health and she does not use any DME. Patient did ask me if I could help her with finding a female MD in [place] who is taking new patients. She is currently seeing a Dr Freeman in [place], but would like to have someone local. I spoke with her about Dr Tang and Dr Molina. She would like to have someone close to her home and asked if I would call Dr Molina's office. I called and spoke with Trevon and she is taking new patients and will get in touch with the patient to get an appointment. I send Trevon the patient's facesheet and h&p. I have also let the patient know, she is very excited. Patient denied known discharge needs at this time. CM will continue to follow and will assist as needed with dc plans/needs. Community Development Technician: Chinyere Hopkins DCPIA - Discharge Planning Initial Assessment Updated by [email or web address]: Chinyere Hopkins on 08/09/19 12:43 pm * Is the patient Alert and Oriented? Yes * How many steps to enter\exit or inside your home? * PCP CHANGING TO DR MOLINA (I SPOKE WITH TREVON AT HER OFFICE) WAS SEEING DR FREEMAN IN [place] * Pharmacy [facility] * Preadmission Environment Home Alone * ADLs Independent * Equipment None * List name and contact numbers for known caregivers / representatives who currently or will assist patient after discharge: LEONARDO DUNBAR (SON) BAUTISTA DUNBAR (SON) [phone] * Verbal permission to speak to the caregivers and representatives has been obtained from the patient. N/A * Community resources currently utilized None * Additional services required to return to the preadmission environment? No * Can the patient safely return to the preadmission environment? Yes * Has this patient been hospitalized within the prior 30 days at any hospital? No Last DP export: 08/10/19 12:15 Patient Name: STANISLAV RAMIREZ Page 37405 at 1556 All edits/amendments must be made on the electronic document DICTATION DATE: 08/11/191554 LICENSING ANALYST: NAVIN 08/11/191554 RPT#: [id number] DC DATE:08/10/19 STATUS: DIS IN [facility] [address] [place] [address] END OF REPORT
--- NOTE | 2019-08-14 17:02 | EC ---
PATIENT:STANISLAV RAMIREZ DATE OF SERVICE: 08/06/19 SEX: F MEDICAL RECORD: [id number] DATE OF : [birth year] LOCATION:[facility] AGE OF PATIENT: 79 ADMISSION DATE: 08/06/19 REFERRING PHYSICIAN: INTERPRETING PHYSICIAN: JENNIFER GAO MD ECHOCARDIOGRAM REPORT ECHO CHARGES 4 ECHO COMPLETE Date: 08/07/19 CLINICAL DIAGNOSIS: DYSPNEA ECHOCARDIOGRAPHIC MEASUREMENTS (adult normal given) AC root (d.<3.7cm) 2.7 cm LV Septum d (<1.2 cm> 1.0 cm Valve Excursion 1.6 cm LV Septum (systole) 1.8 cm Left Atria (s.<4.0cm> 3.4 cm LVPW d(<1.2cm) 1.2 cm RV (d.<2.3cm) 2.4 cm LVPW (sytole) 1.3 cm LV diastole(<5.6CM) 4.2 cm MV E-F(>70mm/sec) cm LV systole 2.6 cm LVOT Diameter 1.5 cm MV exc.(>10mm) cm Est.ejection fraction (50-75%) % DOPPLER: LVIT cm/sec A 75 cm/sec E 71 cm/sec LA cm/sec RVSP 36.1 mmHg LVOT 116 cm/sec AOP1/2T m/s Asc. Ao 149 cm/sec RVOT 68 cm/sec RA cm/sec PA 65 cm/sec AV Gradient Peak 8.9 mmHg AV Mean 5.1 mmHg AV Area 1.6 cm MV Gradient Peak 3.9 mmHg MV Mean 1.9 mmHg MV Area cm COMMENTS: English Composition Teacher: Meet GOLDMAN Research Associate Molecular Biology: Armando Linares TAPE# PACS Pericardial Effusion N DATE OF SERVICE: 08/07/2019 ECHOCARDIOGRAM FINDINGS: 1. Left ventricular chamber size is within normal limits. Left ventricular systolic function is normal. Overall ejection fraction estimated at 60%. 2. Left atrium is within normal limits. Right atrium and right ventricular chamber sizes are mildly dilated. 3. Valvular structures have normal structure and motion. ECHOCARDIOGRAM REPORT [id number] STANISLAV RAMIREZ 4. Doppler interrogation reveals trace mitral regurgitation, trace tricuspid regurgitation, no other valvular insufficiency or stenosis. Pulmonary systolic pressure estimated 36 mmHg. 5. No evidence of pericardial effusion or left ventricular thrombus. TRANSINT:[id number] Voice Confirmation ID: [id number] DOCUMENT ID: [id number] JENNIFER GAO MD at 1702 CC: [id number] DICTATION DATE: 08/07/19 164 DELI DEPARTMENT MANAGER: 08/07/19 1744 DIS IN 08/10/19 [facility] [address] [place] [id number]
== END 2019-08-10 12:44 | disposition home or self-care (01) | DRG 175 ==
LOC: D.ER 11:59 → D.MS 14:03
PROVIDERS: Family Medicine; ADMIT Internal Medicine Nephrology; ATTEND Internal Medicine Nephrology
DX: I26.99 Other pulmonary embolism without acute cor pulmonale (principal); J96.21 Acute and chronic respiratory failure with hypoxia; J96.22 Acute and chronic respiratory failure with hypercapnia; R04.2 Hemoptysis; J47.1 Bronchiectasis with (acute) exacerbation; J47.0 Bronchiectasis with acute lower respiratory infection; J20.9 Acute bronchitis, unspecified; I10 Essential (primary) hypertension; E55.9 Vitamin D deficiency, unspecified; E78.00 Pure hypercholesterolemia, unspecified

== ENCOUNTER → 2019-09-06 13:01 | Outpatient (CLI) | payer MEDICARE, OTHER ==
[2019-08-07 12:12] VITALS: BMI 20.6
[~2019-09-06 13:01] MED LIST changes: +ELIQUIS5 MG PO; +FLUTICASONE PRO16 GM NASAL; +MUCINEX DM ER1 EAC1 PO; +SINGULAIR10 MG PO
[2019-09-06 13:25] LABS: BASOPHILS 0.3 % (0-2); EOSINOPHILS 3.7 % (0-7); HEMATOCRIT 42.3 % (36.0-48.0); HEMOGLOBIN 13.9 g/dL (12-16); IMMATURE GRANULOCYTES 0.3 % (0-5); MCH 30.1 pg (26.0-34.0); MCHC 32.9 g/dL (31.0-37.0); MCV 91.6 fL (80.0-100.0); MEAN PLATELET VOLUME 9.9 fL (7.4-10.4); MONOCYTES 17.4 % (2-11); NEUTROPHILS 58.3 % (40-80); PLATELET COUNT 329 10x3/uL (130-400); RBC 4.62 10x6/uL (4.00-5.40); WBC 11.8 10x3/uL (4.8-10.8)
== END | disposition home or self-care (01) ==
LOC: D.LAB 13:01
PROVIDERS: ATTEND Internal Medicine Pulmonary Disease
DX: R19.7 Diarrhea, unspecified (principal); Z79.01 Long term (current) use of anticoagulants

== ENCOUNTER 2019-10-09 13:56 | Emergency (ER) | payer MEDICARE, OTHER ==
[~2019-10-09] VITALS: Ht 162.6 cm; Wt 54.5 kg
[2019-10-09 14:02] VITALS: Ht 162.6 cm; Wt 54.5 kg
[2019-10-09 14:44] LABS: BASOPHILS 0.4 % (0-2); EOSINOPHILS 2.9 % (0-7); HEMATOCRIT 41.3 % (36.0-48.0); HEMOGLOBIN 13.4 g/dL (12-16); IMMATURE GRANULOCYTES 0.3 % (0-5); LYMPHOCYTES 30.6 % (15-50); MCH 30.1 pg (26.0-34.0); MCHC 32.4 g/dL (31.0-37.0); MCV 92.8 fL (80.0-100.0); MEAN PLATELET VOLUME 10.4 fL (7.4-10.4); MONOCYTES 15.4 % (2-11); NEUTROPHILS 50.4 % (40-80); PLATELET COUNT 388 10x3/uL (130-400); RBC 4.45 10x6/uL (4.00-5.40); RDW 12.6 % (11.5-14.5); WBC 9.7 10x3/uL (4.8-10.8)
[2019-10-09 14:52] LABS: APTT 38.1 SECONDS (22.8-39.4); INR 1.13 (0.85-1.17); PROTIME 14.4 SECONDS (11.6-15.0)
[2019-10-09 15:05] LABS: CALC OSMOLALITY 273 mosm/kg (275-300); CARBON DIOXIDE 34.6 mmol/L (21.0-32.0); CHLORIDE - SERUM 98 mmol/L (98-107); CREATININE - SERUM 0.8 mg/dL (0.6-1.3); GLUCOSE 99 mg/dL (74-106); POTASSIUM - SERUM 4.3 mmol/L (3.5-5.1); SODIUM 136 mmol/L (136-145); UREA NITROGEN 18 mg/dL (7-18); eGFR NON AFRICAN AMERICAN 73 mL/min (90-120)
[2019-10-09 15:21] LABS: ALBUMIN 3.4 g/dL (3.4-5.0); ALKALINE PHOSPHATASE 121 U/L (46-116); ALT (SGPT) 32 U/L (10-68); BILIRUBIN - TOTAL 0.27 mg/dL (0.2-1.3); CKMB 1.7 U/L (0.0-3.6); CREATINE KINASE 65 UL (21-215); PROTEIN - SERUM 6.9 g/dL (6.4-8.2)
[2019-10-09 15:29] LABS: TROPONIN-I < 0.017 ng/mL (0.000-0.060)
[2019-10-09 16:58] VITALS: BP 114/51
== END 2019-10-09 17:04 | disposition home or self-care (01) ==
LOC: D.ER 13:56
PROVIDERS: Family Medicine
DX: M54.9 Dorsalgia, unspecified (principal); Z86.711 Personal history of pulmonary embolism; K21.9 Gastro-esophageal reflux disease without esophagitis

== ENCOUNTER 2019-10-15 19:03 | Inpatient (IN) | payer MEDICARE, OTHER ==
[~2019-10-15] VITALS: Ht 162.6 cm; Wt 54.4 kg
[2019-10-15] MEDS ORDERED: OXYCONTIN15 MG PO (19:24)
[2019-10-15 20:00] VITALS: BP 146/75
[2019-10-15 20:34] LABS: BASOPHILS 0.3 % (0-2); EOSINOPHILS 2.6 % (0-7); HEMATOCRIT 38.2 % (36.0-48.0); HEMOGLOBIN 12.5 g/dL (12-16); IMMATURE GRANULOCYTES 0.1 % (0-5); LYMPHOCYTES 35.3 % (15-50); MCH 29.8 pg (26.0-34.0); MCHC 32.7 g/dL (31.0-37.0); MCV 91.2 fL (80.0-100.0); MEAN PLATELET VOLUME 10.5 fL (7.4-10.4); MONOCYTES 18.1 % (2-11); NEUTROPHILS 43.6 % (40-80); PLATELET COUNT 346 10x3/uL (130-400); RBC 4.19 10x6/uL (4.00-5.40); RDW 12.6 % (11.5-14.5); WBC 8.7 10x3/uL (4.8-10.8)
[2019-10-15 20:42] LABS: INR 1.02 (0.85-1.17); PROTIME 13.4 SECONDS (11.6-15.0)
[2019-10-15 20:45] LABS: ANION GAP 5.2 mmol/L (8-16); CARBON DIOXIDE 35.6 mmol/L (21.0-32.0); CREATININE - SERUM 0.9 mg/dL (0.6-1.3); POTASSIUM - SERUM 3.8 mmol/L (3.5-5.1)
[2019-10-15 20:50] LABS: ALBUMIN 3.5 g/dL (3.4-5.0); BILIRUBIN - TOTAL 0.31 mg/dL (0.2-1.3); MAGNESIUM - SERUM 2.3 mg/dL (1.8-2.4); PROTEIN - SERUM 6.9 g/dL (6.4-8.2)
--- NOTE | 2019-10-15 21:31 | NUR ---
URINE SENT TO THE LAB.
[2019-10-15 21:44] LABS: APPEARANCE TURBID (CLEAR); BILIRUBIN NEGATIVE (NEGATIVE); COLOR BROWN (YELLOW); GLUCOSE NEGATIVE (NEGATIVE); KETONE NEGATIVE (NEGATIVE); NITRITE NEGATIVE (NEGATIVE); PROTEIN TRACE mg/dL (NEGATIVE); SPECIFIC GRAVITY 1.015 (1.005-1.020); UROBILINOGEN NORMAL (NORMAL)
[2019-10-15 21:45] LABS: RED CELLS - URINE >50 /hpf (0-5); WHITE CELLS - URINE 0-5 /hpf (NEGATIVE)
[2019-10-15 21:46] LABS: BACTERIA FEW /hpf (NEGATIVE)
[2019-10-15 22:00] VITALS: BP 157/74
[2019-10-15 23:27] LABS: APPEARANCE CLOUDY (CLEAR); BILIRUBIN NEGATIVE (NEGATIVE); COLOR BROWN (YELLOW); GLUCOSE NEGATIVE (NEGATIVE); KETONE NEGATIVE (NEGATIVE); NITRITE NEGATIVE (NEGATIVE); PROTEIN 1+ mg/dL (NEGATIVE); UROBILINOGEN NORMAL (NORMAL)
[2019-10-15 23:29] LABS: BACTERIA FEW /hpf (NEGATIVE); EPITHELIAL CELLS 0-5 /hpf (0-5); WHITE CELLS - URINE 0-5 /hpf (NEGATIVE)
[2019-10-16 00:04] VITALS: BP 139/80; BMI 20.6
[2019-10-16 05:06] VITALS: BP 107/51
[2019-10-16 06:04] LABS: HEMATOCRIT 36.2 % (36.0-48.0); HEMOGLOBIN 11.8 g/dL (12-16)
[2019-10-16 07:14] LABS: BASOPHILS 0.3 % (0-2); EOSINOPHILS 2.4 % (0-7); IMMATURE GRANULOCYTES 0.2 % (0-5); MCH 29.9 pg (26.0-34.0); MCHC 32.9 g/dL (31.0-37.0); MCV 91.1 fL (80.0-100.0); MEAN PLATELET VOLUME 11.1 fL (7.4-10.4); MONOCYTES 16.6 % (2-11); NEUTROPHILS 44.5 % (40-80); PLATELET COUNT 341 10x3/uL (130-400); RBC 3.94 10x6/uL (4.00-5.40); RDW 12.7 % (11.5-14.5)
[2019-10-16 07:15] LABS: WBC 11.5 10x3/uL (4.8-10.8)
[2019-10-16 08:02] LABS: ALBUMIN 2.8 g/dL (3.4-5.0); ANION GAP 8.7 mmol/L (8-16); BILIRUBIN - TOTAL 0.34 mg/dL (0.2-1.3); CALCIUM 8.3 mg/dL (8.5-10.1); CARBON DIOXIDE 33.2 mmol/L (21.0-32.0); CREATININE - SERUM 0.8 mg/dL (0.6-1.3); POTASSIUM - SERUM 3.9 mmol/L (3.5-5.1); PROTEIN - SERUM 5.9 g/dL (6.4-8.2)
[2019-10-16 08:24] VITALS: BP 119/55
[2019-10-16 12:42] VITALS: BP 121/49
[2019-10-16 15:13] VITALS: Ht 162.6 cm; Wt 54.4 kg
[2019-10-16 16:47] VITALS: BP 125/48
[2019-10-16 17:00] LABS: HEMATOCRIT 36.1 % (36.0-48.0); HEMOGLOBIN 11.9 g/dL (12-16)
--- NOTE | 2019-10-16 19:00 | NUR ---
PATIENT SITTING UP IN BED. CEZAR SAYS HER PAIN IS A 10/10 AND WANTS PAIN MEDICINE SOON ITS DUE. L AC IV SL, NO REDNESS OR SWELLING NOTED. PATIENT HAS NO OTHER NEEDS AT THIS TIME. BED RAILS X2. CALL LIGHT AND BEDSIDE TABLE WIHTIN REACH.
[2019-10-16 19:30] VITALS: BP 125/52
[2019-10-17 00:30] VITALS: BP 133/50
[2019-10-17 04:30] VITALS: BP 112/50
[2019-10-17 05:10] LABS: BASOPHILS 0.3 % (0-2); EOSINOPHILS 2.2 % (0-7); HEMATOCRIT 35.6 % (36.0-48.0); HEMOGLOBIN 11.6 g/dL (12-16); IMMATURE GRANULOCYTES 0.2 % (0-5); LYMPHOCYTES 28.7 % (15-50); MCH 29.9 pg (26.0-34.0); MCHC 32.6 g/dL (31.0-37.0); MCV 91.8 fL (80.0-100.0); MEAN PLATELET VOLUME 10.9 fL (7.4-10.4); MONOCYTES 18.1 % (2-11); NEUTROPHILS 50.5 % (40-80); PLATELET COUNT 336 10x3/uL (130-400); RBC 3.88 10x6/uL (4.00-5.40); RDW 12.8 % (11.5-14.5); WBC 12.5 10x3/uL (4.8-10.8)
[2019-10-17 05:29] LABS: ANION GAP 9.4 mmol/L (8-16); CALCIUM 8.4 mg/dL (8.5-10.1); CARBON DIOXIDE 30.1 mmol/L (21.0-32.0); CREATININE - SERUM 0.8 mg/dL (0.6-1.3); POTASSIUM - SERUM 3.5 mmol/L (3.5-5.1)
--- NOTE | 2019-10-17 07:10 | NUR ---
REC'D IN BED AWAKE AND ALERT. RESP EVEN AND UNLABORED WITH NO DISTRESS NOTED. CAN EXPRESS NEEDS AND WANTS. NO C/O NOTED OR VOICED. ASSESSMENT COMPLETED. C/L IN REACH AT BEDSIDE.
[2019-10-17 09:01] VITALS: BP 133/60
[2019-10-17 11:04] LABS: % SATURATION 18 % (15-55); IRON 61 ug/dl (35-150); TOTAL IRON BIND CAPACITY 331 ug/dl (260-445); UNSAT IRON BIND CAPACITY 270 ug/dl (150-375)
[2019-10-17 11:05] VITALS: BP 105/56
--- NOTE | 2019-10-17 12:00 | NUR ---
I have reviewed this patient and I concur with the Shift Assessment completed by the Licensed Practical Nurse today this shift.
[2019-10-17] MEDS ORDERED: ELIQUIS2.5 MG PO (13:39)
[2019-10-17] MEDS ORDERED: Levaquin PO (14:27)
--- NOTE | 2019-10-17 15:36 | NUR ---
DC HOME AT THIS IV. IV DC. VOICE UNDERSTANDING OF DC ORDERS.
--- NOTE | 2019-10-18 16:57 | MORECARE ---
CASE MANAGEMENT DISCHARGE SUMMARY PATIENT: STANISLAV RAMIREZ UNIT: [id number] ADM DATE: 10/15/19 AGE: 79 : 39 SEX: F ROOM/BED: D.2230 AUTHOR: KLAUS LORENZ PHYSICIAN: REFERRING PHYSICIAN: KATHY NAPIER MD DATE OF SERVICE: 10/18/19 Discharge Plan Patient Name: STANISLAV RAMIREZ Facility: [facility]:[place] : 1940 Planned Disposition: Home Anticipated Discharge Date: 10/17/19 Discharge Date: 10/17/2019 Expected LOS: 2 Initial Reviewer: [email or web address] Initial Review Date: 10/18/2019 Generated: 10/18/19 5:57 pm Patient Name: STANISLAV RAMIREZ Page 48060 at 1657 All edits/amendments must be made on the electronic document DICTATION DATE: 10/18/191656 LEASING ASSOCIATE: NAVIN 10/18/191656 RPT#: [id number] DC DATE:10/17/19 STATUS: DIS IN [facility] [address] [place] [address] END OF REPORT
== END 2019-10-17 15:38 | disposition home or self-care (01) | DRG 378 ==
LOC: D.ER 19:03 → D.MS 22:54
PROVIDERS: Emergency Medicine; ADMIT Internal Medicine Nephrology; ATTEND Internal Medicine Nephrology
DX: K92.2 Gastrointestinal hemorrhage, unspecified (principal); N39.0 Urinary tract infection, site not specified; F11.20 Opioid dependence, uncomplicated; I10 Essential (primary) hypertension; J44.9 Chronic obstructive pulmonary disease, unspecified; R31.0 Gross hematuria; D64.9 Anemia, unspecified; Z79.01 Long term (current) use of anticoagulants

== ENCOUNTER → 2019-11-13 11:05 | Outpatient (CLI) | payer MEDICARE, OTHER ==
[2019-11-07 16:20] VITALS: BMI 20.6
== END | disposition home or self-care (01) ==
LOC: D.LAB 11:05
PROVIDERS: ATTEND Internal Medicine Hematology & Oncology
DX: I26.99 Other pulmonary embolism without acute cor pulmonale (principal)

== ENCOUNTER 2020-03-11 11:00 | Day surgery (SDC) | payer MEDICARE, OTHER ==
[~2020-03-11] VITALS: Ht 162.6 cm; Wt 54.5 kg
[~2020-03-11 11:00] MED LIST changes: +ELIQUIS2.5 MG PO; +Levaquin PO; +PROTONIX40 MG PO
[2020-03-11 11:46] LABS: ANION GAP 9.6 mmol/L (8-16); CALCIUM 9.6 mg/dL (8.5-10.1); CARBON DIOXIDE 32.7 mmol/L (21.0-32.0); CREATININE - SERUM 0.9 mg/dL (0.6-1.3); POTASSIUM - SERUM 3.3 mmol/L (3.5-5.1)
[2020-03-11 12:04] LABS: HEMOGLOBIN 14.1 g/dL (12-16); LYMPHOCYTES 26.6 % (15-50); MCH 28.9 pg (26.0-34.0); MCHC 32.8 g/dL (31.0-37.0); MCV 88.1 fL (80.0-100.0); MEAN PLATELET VOLUME 10.4 fL (7.4-10.4); NEUTROPHILS 60.5 % (40-80); PLATELET COUNT 382 10x3/uL (130-400); RBC 4.88 10x6/uL (4.00-5.40); RDW 13.8 % (11.5-14.5); WBC 10.5 10x3/uL (4.8-10.8)
[2020-03-11 12:20] VITALS: BP 139/94; Ht 162.6 cm; Wt 54.5 kg
--- NOTE | 2020-03-12 07:09 | OP ---
PATIENT NAME: STANISLAV RAMIREZ MEDICAL RECORD: [id number] :[birth year] LOCATION:[facility] ADMISSION DATE: SURGEON: KARSTEN HERNANDEZ DO DATE OF OPERATION: 03/11/2020 PROCEDURE: EGD with biopsies. INDICATIONS FOR PROCEDURE: Anemia and melena. SCOPE: Olympus video gastroscope. MEDICATIONS: Propofol 100 mg IV per anesthesia. ESTIMATED BLOOD LOSS: Minimal. COMPLICATIONS: None. FINDINGS: Informed consent was given. The patient was made comfortable with the above medication. After reaching an adequate level of sedation by slow IV push, the patient was placed on her left side. The endoscope was advanced under direct visualization through the mouth to the second portion of the duodenum with ease. The entire esophagus appeared normal to the GE junction. At the GE junction, there were changes consistent with LA class A reflux-induced esophagitis. Cold forceps, biopsies were taken from the squamocolumnar junction to rule out the presence of Peterson's mucosa. The endoscope was advanced beyond the GE junction into the stomach and retroflexed to view the cardia, where a small sliding hiatal hernia was present. There were no associated ulcerations or other abnormalities with this hernia. The fundus and body of the stomach appeared normal. In the antrum and prepyloric regions, there was some erythema and granularity consistent with gastritis. Cold forceps, biopsies were taken from the antrum and incisura to submit for histopathology and to rule out presence of H. pylori. The endoscope was advanced beyond the pylorus into the duodenum. In the second portion of the duodenum, there was a lipoma. Cold forceps, biopsies were taken from the surface to confirm benign normal mucosa. Cold forceps biopsies were randomly taken throughout the bulb and second portion of the duodenum to submit for histopathology. The endoscope was then withdrawn from the patient. The patient tolerated the procedure well and there were no complications. IMPRESSION: 1. LA class A reflux-induced esophagitis. 2. Small sliding hiatal hernia. 3. Mild chronic gastritis involving antrum. 4. 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 PLAN AND RECOMMENDATIONS: 1. Discharge home when recovery parameters are met. 2. Follow up biopsy specimen results. 3. GERD diet and reflux precautions. 4. Continue current medications including pantoprazole 40 mg daily. 5. Notify the GI clinic if symptoms return. 6. Follow up in GI clinic as needed. TRANSINT:[id number] Voice Confirmation ID: [id number] DOCUMENT ID: [id number] OPERATIVE REPORT [id number] STANISLAV RAMIREZ,KARSTEN Elder DO at 0709 CC: [id number] DICTATION DATE: 03/11/20 1302 COMBINING MACHINE OPERATOR: 03/11/20 2254 [facility] 03/11/20 [place] [id number] [place] [id number]
== END 2020-03-11 13:55 | disposition home or self-care (01) ==
LOC: D.OPS 11:00
PROVIDERS: Anesthesiology; ATTEND Internal Medicine Gastroenterology
DX: D64.9 Anemia, unspecified (principal); K92.1 Melena

== ENCOUNTER 2020-04-12 18:24 | Emergency (ER) | payer MEDICARE, OTHER ==
[~2020-04-12] VITALS: Ht 162.6 cm; Wt 54.1 kg
[2020-04-12 18:25] VITALS: Ht 162.6 cm; Wt 54.1 kg
[2020-04-12 21:10] VITALS: BP 150/75
== END 2020-04-12 21:10 | disposition home or self-care (01) ==
LOC: D.ER 18:24
DX: R09.89 Other specified symptoms and signs involving the circulatory and respiratory systems (principal); R13.10 Dysphagia, unspecified; I10 Essential (primary) hypertension; J44.9 Chronic obstructive pulmonary disease, unspecified

== ENCOUNTER 2020-05-17 08:38 | Emergency (ER) | payer MEDICARE, OTHER ==
[~2020-05-17] VITALS: Ht 162.6 cm; Wt 54.5 kg
[2020-05-17 08:41] VITALS: Ht 162.6 cm; Wt 54.5 kg
[2020-05-17 09:54] LABS: ANION GAP 11.2 mmol/L (8-16); CARBON DIOXIDE 32.9 mmol/L (21.0-32.0); CREATININE - SERUM 0.9 mg/dL (0.6-1.3); POTASSIUM - SERUM 3.1 mmol/L (3.5-5.1)
[2020-05-17 09:59] LABS: ALBUMIN 3.4 g/dL (3.4-5.0); BILIRUBIN - TOTAL 0.88 mg/dL (0.2-1.3); PROTEIN - SERUM 6.6 g/dL (6.4-8.2)
[2020-05-17 10:04] LABS: HEMATOCRIT 36.6 % (36.0-48.0); HEMOGLOBIN 12.8 g/dL (12-16); MCH 30.7 pg (26.0-34.0); MCV 87.8 fL (80.0-100.0); MEAN PLATELET VOLUME 9.9 fL (7.4-10.4); PLATELET COUNT 352 10x3/uL (130-400); RBC 4.17 10x6/uL (4.00-5.40); WBC 27.3 10x3/uL (4.8-10.8)
[2020-05-17] MEDS ORDERED: K-TAB10 MEQ PO (11:28)
[2020-05-17 11:52] LABS: BILIRUBIN NEGATIVE (NEGATIVE); KETONE NEGATIVE (NEGATIVE); NITRITE NEGATIVE (NEGATIVE); UROBILINOGEN NORMAL (NORMAL)
[2020-05-17 11:53] LABS: BACTERIA FEW /hpf (NONE SEEN); EPITHELIAL CELLS 0-5 /hpf (0-5); RED CELLS - URINE NONE SEEN /hpf (0-5); WHITE CELLS - URINE 0-5 /hpf (0-5)
[2020-05-17 12:04] LABS: LYMPHOCYTES 12 % (15-50); MONOCYTES 10 % (2-11); NEUTROPHILS 69 % (40-80); PLATELET ESTIMATE NORMAL
[2020-05-17 12:55] VITALS: BP 117/48
== END 2020-05-17 12:57 | disposition home or self-care (01) ==
LOC: D.ER 08:38
PROVIDERS: Emergency Medicine
DX: G43.009 Migraine without aura, not intractable, without status migrainosus (principal); I48.91 Unspecified atrial fibrillation; J44.9 Chronic obstructive pulmonary disease, unspecified; E87.6 Hypokalemia; E87.1 Hypo-osmolality and hyponatremia; I10 Essential (primary) hypertension